=== PATIENT | male | born 2000 | race Caucasian/White ===

== ENCOUNTER 2024-12-19 14:51 | Outpatient (AMB) | payer OTHER, SELFPAY ==
--- NOTE | 2024-12-19 14:52 | A.OFFVIS_ITS ---
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 He initially injured his knee in May 2023 while playing football at [employer]. He was hip in the lateral aspect of his right knee and sustained a dislocation of his patella that auto located. He subsequently rehabbed his knee and returned in February of 2024 to football at [employer] where he re-injured his knee and a similar episode. He did not return that season and an MRI was obtained in March of 2024. This suggested damage to the MPFL, MCL and a injury to the cartilage of the patella. In August of this year he tweaked his knee again. He describes a sensation of instability but no dislocation. He did have subsequent swelling but has returned to activity much quicker than prior. He has had a total of 2 PRP and 2 cortisone injections in the past year. Currently he describes feeling ?okay?. He states he would like to be 100% but feels like he is playing at 80%. He is concerned that he will be unable to get back to 100% or that he will re- injure himself. He does wear a hinged knee brace with a lateral bolster while playing. Physical Exam Extrem Other: Pleasant well developed young man in no acute distress. He has full range of motion of his right knee with no effusion. He has no patellar apprehension and it is difficult to reproduce pain. He has no patellar tilt at his abnormal and his knee is stable to varus and valgus stress. He has a mild discomfort to deep palpation along the femoral origin of the MCL. His quad girth is symmetric compared to the contralateral side with the exception of the VMO. Results Reviewed Results Reviewed: I personally reviewed the MR images. There is a question of the MPFL laxity but the MCL is intact and there is a cartilage lesion to the central patellar facet with subchondral increased uptake on T2 imaging consistent with an osteochondral lesion. 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 There has been subsequent injuries and an MRI from 7-8 months ago showed a patellar contusion. He does not demonstrate symptoms of tiara instability but he is concerned that, given his field position, when he gets hit from the lateral side that he will dislocate again. This is a reasonable concern and he is doing everything he can to prevent this. He is wearing the appropriate braces and engaging in strengthening exercises. I explained the importance of hip strengthening and the prevention of femoral internal rotation as an additional way of understanding patellar dislocation prevention. I do not think there is surgical intervention that would allow him to reliably return to play this year. He had a PRP injection 4-6 weeks ago. We had a long discussion regarding both surgical and nonsurgical treatment options. I think most of his pain comes from the patellar contusion and this does seem to be improving, albeit slowly. My goal for him would be to minimize his symptoms to allow for improved strengthening. Obviously prevention of redislocation is paramount as every time this happens he is going to re-injure the patella. I recommend minimizing deep and heavy squatting and a course of NSAIDs. This may help minimize his symptoms and allow him to achieve a higher level of performance. We will try this and see if it helps and I will touch base with him again in 3-4 weeks. He is amenable to this plan. The process trainer was present during our discussion. (2) Patellar contusion: Code(s): S80.00XA - Contusion of unspecified knee, initial encounter Category: Medical Plan: Coding Level of Care Code New Pt Level 4 (23556) Diagnoses Closed patellar dislocation S83.006A Patellar contusion S80.00XA
--- OUTSIDE RECORDS SUMMARY | 2024-12-19 16:09 | XMS_ITS | Clinical Summary ---
Author Organization [facility] Address [address] GITA Garcia Care Team Providers Care Die Inspector Name Role Phone Mann Nugent MD Primary Care Provider [phone] Allergies Active Allergy Reactions Criticality Noted Date Comments Amoxicillin-Pot Clavulanate 03/13/20 15 Medications albuterol HFA (VENTOLIN HFA) 90 mcg/actuation inhaler Inhale 2 puffs into the lungs every 6 (six) hours as needed for Wheezing. Active loratadine-pseud oephedrine (CLARITIN-D 12-HOUR) 5-120 mg per tablet Take 1 tablet by mouth 2 (two) times daily. Active Active Problems No known active problems Social History Tobacco Use Types Packs/Day Years Used Date Smoking Tobacco: Never Alcohol Use Standard Drinks/Week Comments No 0 (1 standard drink = 0.6 oz pur e alcohol) Caregiver Health Answer Date Recorded Feeling Down Not on file 12/10/2024 Low Interest In Doing Things Not on file 04/2025 Substance use problems in home Not on file 0 12/10/2024 [facility] Caregiver Health Substance Override 1 12/10/2024 Child Education Answer Date Recorded In Preschool Education Not on file Concerns about learning/development Not on file 12/10/2024 School Help Not on file 12/10/2024 Nightly Reading to Child Not on file 025 Child Education Domain: Yes Responses After NA 0 12/10/2024 Child Education Domain: Unknown Responses After NA 1 12/10/2024 Sex and Gender Information Value Date Recorded Sex Assigned at Not on file Legal Sex Male 5:25 PM EDT Gender Identity Not on file Sexual Orientation Not on file Last Filed Vital Signs Vital Sign Reading Time Taken Comments Blood Pressure 166/106 06/20/2024 8:10 AM EST Pulse 82 06/20/2024 8:10 AM EST Temperature 36.5 C (97.7 F) 06/20/2024 6:05 AM EST Respiratory Rate 17 06/20/2024 6:05 AM EST Oxygen Saturation 96% 06/20/2024 8:10 AM EST Inhaled Oxygen Concentration - - Weight 144.2 kg (317 lb 14.5 oz) 06/20/2024 6:05 AM EST Height 200.7 cm (6' 7 ) 06/20/2024 6:05 AM EST Body Mass Index 35.81 06/20/2024 6:05 AM EST Plan of Treatment Health Maintenance Due Date Last Done Comments Hepatitis C Screening 1999 HPV Vaccine (1 - Male 3-dose series) 12/16/2014 Depression Screening 12/16/2017 DTap/Tdap/Td Vaccines (1 - Tdap) 2019 Covid-19 Vaccine ( - season) 2024 Influenza Vaccine 03/03/2025 04/21/2009, 04/28/2008 Hepatitis B Vaccines Completed 07/13/2000, 01/24/2000, 1999 Pneumococcal Vaccine Risk Series 0-50 years Aged Out 01/04/2001, 07/13/2000, 05/09/2000, Additional history exists No longer eligible based on patient's age to complete this topic HIB Vaccines Completed 08/06/2001, 07/03, 05/09/2000, Additional history exists Meningococcal ACWY Vaccine Aged Out 01/21/2011 N o longer eligible based on patient's age to complete this topic Meningococcal B (MenB) Aged Out No lo nger eligible based on patient's age to complete this topic Rotavirus Vaccines Aged Out No longer eligible based on patient's age to complete this topic Insurance GITA SHARMA [id number] [facility] [address] Care Teams Die Inspector Relationship Specialty Start Date End Date Mann Nugetn MD [facility] [address] [id number] PCP - General Pediatrics 04/15/14
== END 2024-12-19 14:54 | disposition home or self-care (01) ==
LOC: HO.HOS 14:51
PROVIDERS: PCP Family Medicine; Visit Provider Orthopaedic Surgery
DX: S83.001A Unspecified subluxation of right patella, initial encounter (principal); S80.01XA Contusion of right knee, initial encounter
CPT/HCPCS: 99204

== ENCOUNTER 2025-02-01 12:03 | Outpatient (REF) | payer OTHER, SELFPAY ==
--- NOTE | ~2025-02-01 | MR_ITS ---
CLINICAL HISTORY: S83.006A - Unspecified dislocation of unspecified patella, initial encou... MR right knee without gadolinium Comparison: None Findings: Abnormal vertical signal within the peripheral aspect of the medial meniscus near the junction of the posterior body and posterior horn. The lateral meniscus is intact. Cruciate ligaments are intact. The midsubstance of the medial collateral ligament appears completely torn and positioned posteriorly. The fibular collateral ligament is intact. Nonuniform up to full-thickness articular cartilage loss centered on the patellar median ridge with small foci of subjacent subchondral edema. Focal articular cartilage thinning at the far peripheral lateral trochlear facet with mild subjacent subchondral edema and cystic change. Mild surrounding marrow edema signal within the subcortical lateral femoral condyle anterolaterally. Tiny medial compartment marginal osteophytes. No focal articular cartilage defects within the medial or lateral compartments. Large knee joint effusion which extends outside of the joint space mostly medially. Small amount of intra-articular debris. No significant Coley's cyst. The medial patellar retinacular insertion on the patella is slightly attenuated suggestive of a partial tear. The lateral aspect of the medial patellar retinaculum is ill-defined. The lateral patellar retinaculum is grossly intact. Quadriceps, patellar, popliteus, and flexor tendons are intact. IMPRESSION: 1. Complete tear of the medial collateral ligament midsubstance. 2. Ill-defined partial tearing of the medial patellar retinaculum. 3. Medial meniscal vertical longitudinal tear at the peripheral aspect of the junction between the posterior body and posterior horn. 4. Irregular full-thickness articular cartilage defect overlying the patellar median ridge, which may be acute given the history of patellar dislocation. 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 5. Large knee joint effusion which extends outside of the joint space mostly medially. Small amount of intra-articular debris. This document has been electronically signed by: Santino Martinez DO on 02/01/2025 14:43:26
== END 2025-02-01 12:04 | disposition home or self-care (01) ==
LOC: HO.MRI 12:03
PROVIDERS: Visit Provider Family Medicine
DX: M25.561 Pain in right knee (principal); S83.004D Unspecified dislocation of right patella, subsequent encounter
CPT/HCPCS: 73721

== ENCOUNTER → 2025-02-01 12:11 | Outpatient (BNV) | payer OTHER, SELFPAY | PROVIDERS: Visit Provider Radiology Diagnostic Radiology | DX: S83.411A Sprain of medial collateral ligament of right knee, initial encounter (principal); M25.461 Effusion, right knee | CPT/HCPCS: 73721 ==

== ENCOUNTER 2025-02-28 14:04 | Outpatient (AMB) | payer OTHER, SELFPAY ==
--- NOTE | 2025-02-28 14:05 | MHC.OFFVIS ---
Intake Visit Reasons: Follow Up Intake Note: Patient follow up. 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 We had been treating him were conservatively with aspiration and bracing and physical therapy and he has been improving. He has been taking diclofenac on her and 50 mg per day which has been helping. He feels approximately 80% back to normal and has been practicing this week with the team without any problems or complications. [facility] Surgical History (Updated 04/16/25 @ 15:06 by Sangeeta Castle CMA) Hx of hand surgery Social History (Updated 04/16/25 @ 15:07 by Sangeeta Castle CMA) Current occupational status: student Current occupation: [employer] Physical Exam Extrem Other: On exam Murray has a mild effusion of the right knee with no tenderness to palpation. 1+ laxity of the MCL at 30 degrees of flexion and no patellar apprehension. 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 He has reached a approximately 80% function and has been practicing without incident all week. He has been cleared to play this weekend. He understands that he is not 100% in it there are risks of further injury including season ending injury. He has been using a unloading brace to protect his MCL and inserts in his shoes to avoid excessive valgus and pronation. We have discussed the possibility of a intramuscular injection of NSAID prior to playing as his swelling persists and does inhibit him. I have asked that he hold his dose of diclofenac and we will be able to inject him prior to playing as he feels this will be most helpful to him to prevent re-injury. I explained to him clearly that this will not be a weekly thing and it will likely be a 1 time injection. Our goals are to enable him to understand the limitations of his injury so that we can continue our recovery process moving forward while at the same time enabling him to play in this game safely. Medications: New diclofenac sodium 50 mg PO BID 42 tabs 2RF Coding Level of Care Code Est Pt Level 4 (36666) Diagnoses Closed patellar dislocation S83.006A
--- OUTSIDE RECORDS SUMMARY | 2025-02-28 14:06 | XMS_ITS | Encounter Summary ---
Author Organization [facility] Address [address] [place], [place] [id number] Phone Care Team Providers Care Children'S Nursery Assistant Name Role Phone Alfonzo Aly DO Primary Care Provider [phone] Encounter Details Date Type Department Care Team (Late st Contact Info) Description 03/05/2024 Procedure Pass [address] [place] [address] Social History Tobacco Use Types Packs/Day Years Used Date Smoking Tobacco: Never Assessed Education Answer Date Recorded Are you interested in more education? Not on beatriz e 03/06/2024 Are you concerned about learning? Not on file 03/06/2024 No 03/06/2024 No 03/06/2024 Digital Access Answer Date Recorded No 03/06/2024 No 03/06/2024 Reliable internet access at home? Not on file 03/06/2024 Device with a working camera? Not on file Sex and Gender Information Value Date Recorded Sex Assigned at Not on file Legal Sex Male 11:21 AM EDT Gender Identity Not on file Sexual Orientation Not on file documented as of this encounter Plan of Treatment Not on file documented as of this encounter Visit Diagnoses Not on filedocumented in this encounter Care Teams Children'S Nursery Assistant Relationship Specialty Start Date End Date Alfonzo Aly DO [address] [place], [place] [address] [address] PCP - General Family Medicine 03/06/24 documented as of this encounter Additional Source Comments The information contained in this document represents components of the legal health record. It is not the complete legal health record.[facility]
--- OUTSIDE RECORDS SUMMARY | 2025-02-28 14:06 | XMS_ITS | Continuity of Care Document ---
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 Allergic rhinitis Trevor Roy M.S., INTERNATIONAL EXCHANGE COORDINATOR-C Onset: 12/19/2013 Allergic rhinitis Trevor Roy M.S., INTERNATIONAL EXCHANGE COORDINATOR-C Onset: 12/19/2013 Allergic rhinitis caused by animals Trevor Roy M.S., INTERNATIONAL EXCHANGE COORDINATOR-C Onset: 12/19/2013 Allergic rhinitis caused by pollen Lynnette Bey, INTERNATIONAL EXCHANGE COORDINATOR-C Onset: 12/19/2013 Allergic asthma without status asthmaticus Trevor Roy M.S., INTERNATIONAL EXCHANGE COORDINATOR-C Onset: 12/19/2013 Exercise-induced asthma Trevor Roy M.S., INTERNATIONAL EXCHANGE COORDINATOR-C O nset: 11/29/2013 Difficulty breathing Trevor Roy M.S., INTERNATIONAL EXCHANGE COORDINATOR-C Onse t: 11/29/2013 Posterior rhinorrhea Trevor Roy M.S., INTERNATIONAL EXCHANGE COORDINATOR-C Onse t: 11/29/2013 Chronic rhinitis Trevor Roy M.S., INTERNATIONAL EXCHANGE COORDINATOR-C Onset: 0 11/29/2013 Allergies and adverse reactions Active Allergies Criticality Reaction Severity Comments Date Augmentin Unable to assess criticality Urticaria 11/29/2013 Montelukast Unable to assess criticality Mood change Moderate 02/14/2014 Inactive Allergies No Known Drug Allergies 0 11/29/2013 Medications Active Medications SIG Qnty Indications Ordering Provider Date Stcu21isv/Act Aerosol 2 puffs twice daily; rinse mouth after use 1units 493.00 Vitor Parekh M.D. 12/19/2013 [id number] Tablets 1 tab by mouth every day as needed for seasonal allergies 30tabs 493.00 Trevor Roy M.S., INTERNATIONAL EXCHANGE COORDINATOR-C 12/19/2013 Sinus Rinse Bottle KitPacket rinse sinus twice daily; may buy gtha-tvt-nqqwuah sinus rinse 1units 472.0 Trevor Roy M.S., INTERNATIONAL EXCHANGE COORDINATOR-C 11/29/2013 Jeaaotc87lcw/Act Suspension 1 spray each nostril twice daily 1units 472.0 Trevor Roy M.S., INTERNATIONAL EXCHANGE COORDINATOR-C 11/29/2013 784.91 493.00 Ventolin UFP411(90Base) mcg/Act Aerosol 2 puffs every 4 hours as needed; 30min prior to exercise 1units 472.0 Trevor Roy M.S., INTERNATIONAL EXCHANGE COORDINATOR-C 11/29/2013 Vital Signs Date Vital Result Comment 04/25/2014 4:24pm Height 72 inches 6'0 Weight 146.00 lb Weight 66.226 kg BP Systolic 110 mmHg left arm BP Diastolic 70 mmHg left arm Heart Rate 85 /min Body Temperature 98.4 F tympanic Respiratory Rate 16 /min O2 % BldC Oximetry 96 % Room air Neck Circumference in inches 13 BMI (Body Mass Index) 19.8 kg/m2 02/14/2014 8:32am Height 71 inches 5'11 Weight 139.00 lb Weight 63.050 kg BP Systolic 100 mmHg left arm BP Diastolic 80 mmHg left arm Heart Rate 75 /min Body Temperature 96.3 F tympanic Respiratory Rate 20 /min O2 % BldC Oximetry 98 % Room air Neck Circumference in inches 13 BMI (Body Mass Index) 19.4 kg/m2
--- OUTSIDE RECORDS SUMMARY | 2025-02-28 14:06 | XMS_ITS | Clinical Summary ---
Author Organization [facility] Address [address] [place] [address] Phone Care Team Providers Care Hog Killer Name Role Phone Mann Nugent MD Primary Care Provider [phone] Allergies No known active allergies Medications No known medications Family History Medical History Relation Name Comments OTHER Father Treated for Lym e in 1984; Was treated for PAUL for 2 years prior to that, but then found a target lesion. He has cartilage damage in some joints. No further problems after 10th grade. Stage IV Melanoma diagnosed 1 year ago Rheumatoid Arthritis Father IBD No Family History Psoriasis No Family History SLE No Family History Thyroid Disease No Family History Relation Name Status Comments Father Social History Tobacco Use Types Packs/Day Years Used Date Smoking Tobacco: Never Assessed Sex and Gender Information Value Date Recorded Sex Assigned at Not on file Legal Sex Male 11:52 AM EST Gender Identity Not on file Sexual Orientation Not on file Last Filed Vital Signs Vital Sign Reading Time Taken Comments Blood Pressure 110/66 09/29/2009 1:19 PM EDT Pulse 79 09/29/2009 1:19 PM EDT Temperature 36.8 C (98.2 F) 09/29/2009 1:19 PM EDT Respiratory Rate - - Oxygen Saturation - - Inhaled Oxygen Concentration - - Weight 39.6 kg (87 lb 4.8 oz) 09/29/2009 1:19 PM EDT Height 155.1 cm (5' 1.06 ) 09/29/2009 1:19 PM ED T Body Mass Index 16.46 09/29/2009 1:19 PM EDT Plan of Treatment Not on file Insurance GITA GARCIA [employer] [facility] GITA [id number] Care Teams Hog Killer Relationship Specialty Start Date End Date Mann Nugent MD [address] [facility] [address] [place] [id number] PCP - General 06/04/09
--- OUTSIDE RECORDS SUMMARY | 2025-02-28 14:06 | XMS_ITS | Encounter Summary ---
Author Organization [facility] Address [address] [place] [address] Phone Care Team Providers Care Edging Machine Operator Name Role Phone Alfonzo Aly DO Primary Care Provider [phone] Reason for Referral * MRI/CAT Scan - Closed Specialty Diagnoses / Procedures Referred By Juan german Referred To Contact Radiology Diagnoses Right knee pain, unspecified chronicity Procedures MRI Knee (Right) Alfonzo Aly DO [address] [place] [address] Phone: tel: fax: [email or web address] Referral ID Status Reason Start Date Expiration Date Visits Re quested Visits Authorized [id number] Closed 03/05/2024 03/05/2025 1 1 Encounter Details Date Type Department Care Team (Late st Contact Info) Description 03/05/2024 Transcribe Orders Virtual Department [address] [place] [address] Alfonzo Aly DO [address] [place] [address] [email or web address] Right knee pain, unspecified chronicity (Primary Dx) Social History Tobacco Use Types Packs/Day Years [...] on file documented as of this encounter Results * MRI KNEE WITHOUT CONTRAST (RIGHT) (03/18/2024 7:46 AM EDT) Anatomical Region Laterality Modality Knee Right Magnetic Resonan ce 03/18/2024 8:17 AM EDT Addenda Addendum by Cristo Levy MD on 03/27/2024 9:31 AM EDT ADDENDUM: Prior right knee MRI 05/07/2023 now available for comparison. No change in the overall impression. Impressions 03/18/2024 8:29 AM EDT 1. Likely sequela of transient lateral patellar dislocation with complete disruption of the medial patellofemoral retinaculum/medial patellofemoral ligament at the femoral attachment and associated contusions/microtrabecular fractures of the lateral femoral condyle and medial patella. 2. Complete MCL tear. 3. Mild attenuation of the medial meniscus posterior root attachment with mild meniscal extrusion, possibly degeneration versus partial tear. 4. Large osteochondral defect within the patella. Narrative 03/18/2024 8:29 AM EDT MRI KNEE WITHOUT CONTRAST (RIGHT) Referring clinician's provided indication for this examination in Epic: Outside Radiology Order; right knee pain TECHNIQUE: Multi-sequence, multi-planar MRI of the knee without intravenous contrast. COMPARISON: None FINDINGS: Medial Compartment: Mild attenuation of the medial meniscus posterior root attachment with mild meniscal extrusion. No cartilage defect or subchondral edema. Lateral Compartment: No meniscal tear. No cartilage defect or subchondral edema. Patellofemoral Compartment: 1.8 x 1.4 cm focus of subchondral signal abnormality/defect with subchondral cystic change and edema. Tendons: Quadriceps, patellar, and popliteus tendons are intact. Ligaments: Cruciate ligaments are intact. Complete disruption of the mid medial collateral ligament fibers. Complete disruption of the medial patellofemoral retinaculum/medial patellofemoral ligament at the femoral attachment. The patellar attachment is mildly thickened without tear. The medial patellofemoral retinaculum is thickened inferiorly with intermediate intrasubstance signal. Marked periligamentous edema with 5.1 x 1.3 x 4.3 cm fluid collection inferiorly. The lateral collateral ligament complex is intact. Bones: Marrow edema with a small focus of cortical disruption and areas of linear T1 hypointensity within the anterior aspect of the lateral femoral condyle. There is also a small focus of edema within the medial aspect of the patella. No suspicious bone lesion. No osteonecrosis. Joint: Small joint effusion. No Coley's cyst. Procedure Note Cristo Levy MD - 03/18/2024 MRI KNEE WITHOUT CONTRAST (RIGHT) Referring clinician's provided indication for this examination in Epic:Outside Radiology Order; right knee pain TECHNIQUE: Multi-sequence, multi-planar MRI of the knee withoutintravenous contrast. COMPARISON: None FINDINGS: Medial Compartment: Mild attenuation of the medial meniscus posterior rootattachment with mild meniscal extrusion. No cartilage defect orsubchondral edema. Lateral Compartment: No meniscal tear. No cartilage defect or subchondraledema. Patellofemoral Compartment: 1.8 x 1.4 cm focus of subchondral signalabnormality/defect with subchondral cystic change and edema. Tendons: Quadriceps, patellar, and popliteus tendons are intact. Ligaments: Cruciate ligaments are intact. Complete disruption of the midmedial collateral ligament fibers. Complete disruption of the medialpatellofemoral retinaculum/medial patellofemoral ligament at the femoralattachment. The patellar attachment is mildly thickened without tear. Themedial patellofemoral retinaculum is thickened inferiorly withintermediate intrasubstance signal. Marked periligamentous edema with 5.1x 1.3 x 4.3 cm fluid collection inferiorly. The lateral collateralligament complex is intact. Bones: Marrow edema with a small focus of cortical disruption and areas oflinear T1 hypointensity within the anterior aspect of the lateral femoralcondyle. There is also a small focus of edema within the medial aspect ofthe patella. No suspicious bone lesion. No osteonecrosis. Joint: Small joint effusion. No Coley's cyst. IMPRESSION: 1. Likely sequela of transient lateral patellar dislocation with completedisruption of the medial patellofemoral retinaculum/medial patellofemoralligament at the femoral attachment and associatedcontusions/microtrabecular fractures of the lateral femoral condyle andmedial patella. 2. Complete MCL tear. 3. Mild attenuation of the medial meniscus posterior root attachment withmild meniscal extrusion, possibly degeneration versus partial tear. 4. Large osteochondral defect within the patella. Alfonzo Aly DO IMG MR EXTREMITY Edited Resul t - Final documented in this encounter Visit Diagnoses Diagnosis Right knee pain, unspecified chronicity- Primary Right knee pain, unspecified chronicity documented in this encounter Care Teams Edging Machine Operator Relationship Specialty Start Date End Date Alfonzo Aly DO [address] [place] [id number] [email or web address] PCP - General Family Medicine 03/06/24 documented as of this encounter Additional Source Comments The information contained in this document represents components of the legal health record. It is not the complete legal health record.[facility]
--- OUTSIDE RECORDS SUMMARY | 2025-02-28 14:06 | XMS_ITS | Clinical Summary ---
Author Organization [facility] Address [address] [place] [address] Phone Care Team Providers Care Pot Filler Name Role Phone Alfonzo Aly Cristina RODRIGUEZ Primary Care Provider [phone] Social History Tobacco Use Types Packs/Day Years [...] Sign Reading Time Taken Comments Blood Pressure - - Pulse - - Temperature - - Respiratory Rate - - Oxygen Saturation - - Inhaled Oxygen Concentration - - Weight 145.2 kg (320 lb) 03/12/2024 3:18 PM EDT Height 200.7 cm (6' 7 ) 03/12/2024 3:18 PM EDT Body Mass Index 36.05 03/12/2024 3:18 PM EDT Plan of Treatment Health Maintenance Due Date Last Done Comments Adult Td,Tdap Booster 1999 DEPRESSION SCREENING 2011 SMOKING Hx and SMOKELESS TOB ACCO SCREENING 12/16/2012 HPV VACCINES (1 - Male 3-dos e series) 12/16/2014 HEPATITIS C SCREENING 12/16/2017 HIV ONE-TIME SCREENING (18-6 5 YEARS) 12/16/2017 COVID-19 VACCINE ( - 2023-2 5 season) 2024 HEPATITIS A VACCINES Aged Out No long er eligible based on patient's age to complete this topic HIB VACCINES Aged Out No longer eligi ble based on patient's age to complete this topic MENINGOCOCCAL VACCINES (ACWY) Aged Out No longer eligible based on patient's age to complete this topic MENINGOCOCCAL VACCINES (B) Aged Out N o longer eligible based on patient's age to complete this topic PNEUMOCOCCAL VACCINES (0-49 years) Aged Out No longer eligible based on patient's age to complete this topic Medical Devices Not on file Insurance [employer] Care Teams Pot Filler Relationship Specialty Start Date End Date Alfonzo Aly DO [address] [place] [phone] PCP - General Family Medicine 03/06/24 Additional Source Comments The information contained in this document represents components of the legal health record. It is not the complete legal health record.[facility]
--- OUTSIDE RECORDS SUMMARY | 2025-02-28 14:06 | XMS_ITS | Continuity of Care Document ---
Author Organization [facility] luzmaria Soriano Address [address] [place] [address] Phone [phone] Care Team Providers Care Lead Programmer Analyst Name Role Phone Alfonzo Aly DO Care Team Information Desizing Machine Offbearer Unavailable JASE EID DPT Care Team Information Re ceiver Unavailable Mann Nugent MD Primary Care Physician Unavailab le Social History Type Date Description Comments Sex Male Sex Unknown Medications Active Medications SIG Qnty Indications Ordering Provider Date [id number] Tablets Unkn own Vital Signs Date Vital Result Comment 06/17/2024 11:07am BP Systolic 171 mmHg BP Diastolic 111 mmHg Heart Rate 117 /min Weight 315.00 lb Weight 142.884 kg Height 79 inches 6'7 Height in cm's 200.7 cm BMI (Body Mass Index) 35.5 kg/m2 [place] Body Weight 220 lb 01/30/2018 9:59am Height 79 inches 6'7 Height in cm's 200.7 cm Height Percentile 97 % [place] Body Weight 220 lb Procedures Date Code Description Status 07/25/2024 71209 Therapeutic Activities Direc t, Each 15 Minutes Completed 07/25/2024 45592 Re-Eval Of PT Es tablished Plan Of Care 20Mins Face To Face PT/Fam Completed 07/25/2024 93703 Neuromuscular Reeducation, E ach 15 Minutes Completed 07/25/2024 34832 Therapeutic Procedure, Each 15 Minutes Completed 07/25/2024 [facility] [employer] mpleted 07/23/2024 74135 Therapeutic Activities Direc t, Each 15 Minutes Completed 07/23/2024 93665 Neuromuscular Reeducation, E ach 15 Minutes Completed 07/23/2024 08029 Therapeutic Procedure, Each 15 Minutes Completed 07/22/2024 15756 Therapeutic Activities Direc t, Each 15 Minutes Completed 07/22/2024 87018 Therapeutic Procedure, Each 15 Minutes Completed 07/22/2024 92767 Neuromuscular Reeducation, E ach 15 Minutes Completed 07/19/2024 61274 Therapeutic Activities Direc t, Each 15 Minutes Completed 07/19/2024 63678 Neuromuscular Reeducation, E ach 15 Minutes Completed 07/19/2024 24940 Therapeutic Procedure, Each 15 Minutes Completed 07/19/2024 88701 Range Of Motion Measurements Each Extremity Or Trunk Section Completed 07/16/2024 71147 Neuromuscular Reeducation, E ach 15 Minutes Completed 07/16/2024 68595 Therapeutic Procedure, Each 15 Minutes Completed 07/16/2024 06753 Therapeutic Activities Direc t, Each 15 Minutes Completed 07/15/2024 72011 Therapeutic Activities Direc t, Each 15 Minutes Completed 07/15/2024 00117 Neuromuscular Reeducation, E ach 15 Minutes Completed 07/15/2024 53094 Therapeutic Procedure, Each 15 Minutes Completed 07/12/2024 51507 Therapeutic Activities Direc t, Each 15 Minutes Completed 07/12/2024 43295 Neuromuscular Reeducation, E ach 15 Minutes Completed 07/12/2024 04713 Therapeutic Procedure, Each 15 Minutes Completed 07/09/2024 55495 Therapeutic Activities Direc t, Each 15 Minutes Completed 07/09/2024 95633 Neuromuscular Reeducation, E ach 15 Minutes Completed 07/09/2024 96895 Therapeutic Procedure, Each 15 Minutes Completed 07/08/2024 87198 Therapeutic Activities Direc t, Each 15 Minutes Completed 07/08/2024 12281 Neuromuscular Reeducation, E ach 15 Minutes Completed 07/08/2024 86956 Therapeutic Procedure, Each 15 Minutes Completed 07/05/2024 73279 Therapeutic Activities Direc t, Each 15 Minutes Completed 07/05/2024 69229 Therapeutic Procedure, Each 15 Minutes Completed 07/05/2024 93512 Neuromuscular Reeducation, E ach 15 Minutes Completed 07/01/2024 72654 Therapeutic Activities Direc t, Each 15 Minutes Completed 07/01/2024 94740 Neuromuscular Reeducation, E ach 15 Minutes Completed 07/01/2024 80370 Therapeutic Procedure, Each 15 Minutes Completed 06/28/2024 33063 Therapeutic Activities Direc t, Each 15 Minutes Completed 06/28/2024 59848 Neuromuscular Reeducation, E ach 15 Minutes Completed 06/28/2024 27444 Therapeutic Procedure, Each 15 Minutes Completed 06/25/2024 45922 Therapeutic Activities Direc t, Each 15 Minutes Completed 06/25/2024 76700 Neuromuscular Reeducation, E ach 15 Minutes Completed 06/25/2024 97154 Therapeutic Procedure, Each 15 Minutes Completed 06/24/2024 92580 Neuromuscular Reeducation, E ach 15 Minutes Completed 06/24/2024 14412 Therapeutic Procedure, Each 15 Minutes Completed 06/21/2024 93609 Neuromuscular Reeducation, E ach 15 Minutes Completed 06/21/2024 59155 Therapeutic Procedure, Each 15 Minutes Completed 06/19/2024 G8417 Calculated BMI A osei Upper Parameter And Follow Up Plan Documentd Completed 06/19/2024 83247 Therapeutic Procedure, Each 15 Minutes Completed 06/19/2024 51504 Neuromuscular Reeducation, E ach 15 Minutes Completed 06/19/2024 96620 Therapeutic Activities Direc t, Each 15 Minutes Completed 06/17/2024 G8417 Calculated BMI A osei Upper Parameter And Follow Up Plan Documentd Completed 06/17/2024 43925 Therapeutic Activities Direc t, Each 15 Minutes Completed 06/17/2024 75548 Physical Therapy Eval Low Co mplexity Completed 06/17/2024 49193 Neuromuscular Reeducation, E ach 15 Minutes Completed 06/17/2024 18299 Therapeutic Procedure, Each 15 Minutes Completed 02/13/2018 09710 Post-Op Follow-Up Visit Comp leted 01/30/2018 18421 Post-Op Follow-Up Visit Comp leted 01/02/2018 41038 Post-Op Follow-Up Visit Comp leted 12/25/2017 47844 FX Metacarpal Open TX W/Wo F ixation Completed 12/25/2017 62655 Tenolysis Flexor/Extensor Te ndon Forearm/Wrist Completed 12/22/2017 L3908 Who, Wrist Extension Control Cock-Up Nonmolded Completed Assessments Date Code Description Provider 07/25/2024 S83.411D Sprain of medial collateral ligament of right knee, subsequent encounter Jama Dill DPT 07/25/2024 M25.561 Pain in right knee Jama Dill DPT 07/25/2024 M62.81 Muscle weakness (generalized ) Jama Dill DPT 07/25/2024 R26.2 Difficulty in wa lking, not elsewhere classified Jama Dill, DPT 07/25/2024 S80.02xD Contusion of lef t knee, subsequent encounter Jama Dill, DPT 07/25/2024 Z68.35 Body mass index [BMI] 35.0-3 5.9, adult Jama Dill, DPT 07/23/2024 S83.411D Sprain of medial collateral ligament of right knee, subsequent encounter Jase Eid DPT 07/23/2024 S83.411D Sprain of medial collateral ligament of right knee, subsequent encounter Jase Eid DPT 07/23/2024 M25.561 Pain in right knee Gordos,Ch ristopher DPT 07/23/2024 M25.561 Pain in right knee Gordkasie,Ch ristopher DPT 07/23/2024 M62.81 Muscle weakness (generalized ) Jase Eid DPT 07/23/2024 M62.81 Muscle weakness (generalized ) Jase Eid DPT 07/23/2024 R26.2 Difficulty in wa lking, not elsewhere classified JennyJase ferro DPT 07/23/2024 R26.2 Difficulty in wa lking, not elsewhere classified Jase Eid DPT 07/23/2024 S80.02xD Contusion of lef t knee, subsequent encounter Jase Eid DPT 07/23/2024 S80.02xD Contusion of lef t knee, subsequent encounter Jase Eid DPT 07/23/2024 Z68.35 Body mass index [BMI] 35.0-3 5.9, adult StantonJase DPT 07/22/2024 S83.411D Sprain of medial collateral ligament of right knee, subsequent encounter Jama Dill, DPT 07/22/2024 M25.561 Pain in right knee Jama Dill, DPT 07/22/2024 M62.81 Muscle weakness (generalized ) Jama Dill, DPT 07/22/2024 R26.2 Difficulty in wa lking, not elsewhere classified Jama Dill, DPT 07/22/2024 S80.02xD Contusion of lef t knee, subsequent encounter Jama Dill, DPT 07/22/2024 Z68.35 Body mass index [BMI] 35.0-3 5.9, adult DillJama juaerz, DPT 07/19/2024 S83.411D Sprain of medial collateral ligament of right knee, subsequent encounter Jama Dill, DPT 07/19/2024 M25.561 Pain in right knee Jama Dill, DPT 07/19/2024 M62.81 Muscle weakness (generalized ) Stan Dillic, DPT 07/19/2024 R26.2 Difficulty in wa lking, not elsewhere classified Jama Dill, DPT 07/19/2024 S80.02xD Contusion of lef t knee, subsequent encounter Jama Dill, DPT 07/19/2024 Z68.35 Body mass index [BMI] 35.0-3 5.9, adult Jama Dill, DPT 07/16/2024 S83.411D Sprain of medial collateral ligament of right knee, subsequent encounter Jase Eid DPT 07/16/2024 M25.561 Pain in right knee Misty Eid DPT 07/16/2024 M62.81 Muscle weakness (generalized ) Jase Eid DPT 07/16/2024 R26.2 Difficulty in wa lking, not elsewhere classified Jase Eid DPT 07/16/2024 S80.02xD Contusion of lef t knee, subsequent encounter Jase Eid DPT 07/16/2024 Z68.35 Body mass index [BMI] 35.0-3 5.9, adult StantonJase DPT 07/15/2024 S83.411D Sprain of medial collateral ligament of right knee, subsequent encounter Jama Dill, DPT 07/15/2024 M25.561 Pain in right knee Jama Dill, DPT 07/15/2024 M62.81 Muscle weakness (generalized ) Jama Dill, DPT 07/15/2024 R26.2 Difficulty in wa lking, not elsewhere classified Jama Dill, DPT 07/15/2024 S80.02xD Contusion of lef t knee, subsequent encounter Stan Dillic, DPT 07/15/2024 Z68.35 Body mass index [BMI] 35.0-3 5.9, adult DillStan juarezic, DPT 07/12/2024 S83.411D Sprain of medial collateral ligament of right knee, subsequent encounter Jase Eid DPT 07/12/2024 M25.561 Pain in right knee Stanton,Ch ristopher DPT 07/12/2024 M62.81 Muscle weakness (generalized ) Jase Eid DPT 07/12/2024 R26.2 Difficulty in wa lking, not elsewhere classified Jase Eid DPT 07/12/2024 S80.02xD Contusion of lef t knee, subsequent encounter Jase Eid DPT 07/12/2024 Z68.35 Body mass index [BMI] 35.0-3 5.9, adult Jase Eid DPT 07/09/2024 S83.411D Sprain of medial collateral ligament of right knee, subsequent encounter Jama Dill, DPT 07/09/2024 M25.561 Pain in right knee Jama Dill, DPT 07/09/2024 M62.81 Muscle weakness (generalized ) Jama Dill, DPT 07/09/2024 R26.2 Difficulty in wa lking, not elsewhere classified Jama Dill, DPT 07/09/2024 S80.02xD Contusion of lef t knee, subsequent encounter Jama Dill, DPT 07/09/2024 Z68.35 Body mass index [BMI] 35.0-3 5.9, adult DillStan juarezic, DPT 07/08/2024 S83.411D Sprain of medial collateral ligament of right knee, subsequent encounter Jase Eid DPT 07/08/2024 M25.561 Pain in right knee Stanton,Ch ristopher DPT 07/08/2024 M62.81 Muscle weakness (generalized ) Jase Eid DPT 07/08/2024 R26.2 Difficulty in wa lking, not elsewhere classified Jase Eid DPT 07/08/2024 S80.02xD Contusion of lef t knee, subsequent encounter Anish Eidopher DPT 07/08/2024 Z68.35 Body mass index [BMI] 35.0-3 5.9, adult Anish Eidopher DPT 07/05/2024 S83.411D Sprain of medial collateral ligament of right knee, subsequent encounter Anish Eidcaridader DPT 07/05/2024 M25.561 Pain in right knee Stanton,Ch ristopher DPT 07/05/2024 M62.81 Muscle weakness (generalized ) Anish Eidopher DPT 07/05/2024 R26.2 Difficulty in wa lking, not elsewhere classified Jase Eid DPT 07/05/2024 S80.02xD Contusion of lef t knee, subsequent encounter Anish Eidopher DPT 07/05/2024 Z68.35 Body mass index [BMI] 35.0-3 5.9, adult Anish Eidcaridader DPT 07/01/2024 S83.411D Sprain of medial collateral ligament of right knee, subsequent encounter Anish Eidopher DPT 07/01/2024 M25.561 Pain in right knee Stanton,Ch ristopher DPT 07/01/2024 M62.81 Muscle weakness (generalized ) StantonChristopher DPT 07/01/2024 R26.2 Difficulty in wa lking, not elsewhere classified Anish Eidopher DPT 07/01/2024 S80.02xD Contusion of lef t knee, subsequent encounter Anish Eidopher DPT 07/01/2024 Z68.35 Body mass index [BMI] 35.0-3 5.9, adult Anish Eidopher DPT 06/28/2024 S83.411D Sprain of medial collateral ligament of right knee, subsequent encounter Dill, Jama, DPT 06/28/2024 M25.561 Pain in right knee Dill, Jama, DPT 06/28/2024 M62.81 Muscle weakness (generalized ) Dill, Jama, DPT 06/28/2024 R26.2 Difficulty in wa lking, not elsewhere classified Dill, Jama, DPT 06/28/2024 S80.02xD Contusion of lef t knee, subsequent encounter Jama Dill, DPT 06/28/2024 Z68.35 Body mass index [BMI] 35.0-3 5.9, adult Jama Dill, DPT 06/25/2024 S83.411D Sprain of medial collateral ligament of right knee, subsequent encounter Jase Eid DPT 06/25/2024 M25.561 Pain in right knee Gordos,Ch ristopher DPT 06/25/2024 M62.81 Muscle weakness (generalized ) Anish Eidopher DPT 06/25/2024 R26.2 Difficulty in wa lking, not elsewhere classified Jase Eid DPT 06/25/2024 S80.02xD Contusion of lef t knee, subsequent encounter Jase Eid DPT 06/25/2024 Z68.35 Body mass index [BMI] 35.0-3 5.9, adult Anish Eidopher DPT 06/24/2024 S83.411D Sprain of medial collateral ligament of right knee, subsequent encounter Anish Eidopher DPT 06/24/2024 M25.561 Pain in right knee Gordos,Ch ristopher DPT 06/24/2024 M62.81 Muscle weakness (generalized ) Anish Eidopher DPT 06/24/2024 R26.2 Difficulty in wa lking, not elsewhere classified Jase Eid DPT 06/24/2024 S80.02xD Contusion of lef t knee, subsequent encounter Anish Eidopher DPT 06/24/2024 Z68.35 Body mass index [BMI] 35.0-3 5.9, adult JennyAnish ferroopher DPT 06/21/2024 S83.411D Sprain of medial collateral ligament of right knee, subsequent encounter Anish Eidophstan DPT 06/21/2024 M25.561 Pain in right knee Gordos,Ch ristopher DPT 06/21/2024 M62.81 Muscle weakness (generalized ) Anish Eidopher DPT 06/21/2024 R26.2 Difficulty in wa lking, not elsewhere classified Jase Eid DPT 06/21/2024 S80.02xD Contusion of lef t knee, subsequent encounter Anish Eidopher DPT 06/21/2024 Z68.35 Body mass index [BMI] 35.0-3 5.9, adult Anish Eidopher DPT 06/19/2024 S83.411D Sprain of medial collateral ligament of right knee, subsequent encounter Anish Eidopher DPT 06/19/2024 M25.561 Pain in right knee Gordos,Ch ristopher DPT 06/19/2024 M62.81 Muscle weakness (generalized ) Anish Eidopher DPT 06/19/2024 R26.2 Difficulty in wa lking, not elsewhere classified Ab Eider DPT 06/19/2024 S80.02xD Contusion of lef t knee, subsequent encounter Anish Eidopher DPT 06/19/2024 Z68.35 Body mass index [BMI] 35.0-3 5.9, adult Anish Eidopher DPT 06/17/2024 S83.411D Sprain of medial collateral ligament of right knee, subsequent encounter Anish Eidopher DPT 06/17/2024 M25.561 Pain in right knee Gordkasie,Ch ristopher DPT 06/17/2024 M62.81 Muscle weakness (generalized ) Anish Eidopher DPT 06/17/2024 R26.2 Difficulty in wa lking, not elsewhere classified Anish Eidopher DPT 06/17/2024 S80.02xD Contusion of lef t knee, subsequent encounter Anish Eidopher DPT 06/17/2024 Z68.35 Body mass index [BMI] 35.0-3 5.9, adult Anish Eidopher DPT 02/13/2018 S62.303D Unspecified frac ture of third metacarpal bone, left hand, subsequent encounter for fracture with routine healing Wily Pereyra M.D. 01/30/2018 S62.303D Unspecified frac ture of third metacarpal bone, left hand, subsequent encounter for fracture with routine healing Wily Pereyra M.D. 01/02/2018 S62.303D Unspecified frac ture of third metacarpal bone, left hand, subsequent encounter for fracture with routine healing Wily Pereyra M.D. 12/25/2017 S62.303A Unspecified frac ture of third metacarpal bone, left hand, initial encounter for closed fracture Wily Pereyra M.D. 12/25/2017 M79.645 Pain in left finger(s) Wily Joe M.D. 12/25/2017 M24.542 Contracture, left hand Wily Joe M.D. 12/22/2017 S62.323A Displaced fractu re of shaft of third metacarpal bone, left hand, initial encounter for closed fracture Wily Pereyra M.D. 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 12/22/2017 M79.642 Pain in left hand Wily Pereyra M.D.
--- OUTSIDE RECORDS SUMMARY | 2025-02-28 14:06 | XMS_ITS | Clinical Summary ---
Author Organization [facility] Address [address] [place] [address] Care Team Providers Care Armored Vehicle Officer Name Role Phone Unavailable Primary Care Provider Unavailabl e Active Problems Problem Noted Date Diagnosed Date Extrinsic asthma, unspecified 12/26/2013 Immunizations Immunization Administration Dates Next Due DTP 01/13/2004, 2,07/13/2000,05/09,03/10/2000 Hep B, Adolescent or Pediatr ic (Age < 20Y) 07/13/2000,01/24/2000,1999 HiB Unspecified 08/06/2001, 1,05/09/2000,03/10 IPV (Polio, Ipol) (Age >= 6W) 01/13/2004 ,08/06/2001,05/09/2000,03/10 Influenza, Unspecified 04/21/2009,04/28/2008 MMR (Age >= 12M) 01/13/2004,01/04/2001 Meningococcal Conjugate MCV4 P (Menactra) (Age 9M <= 55Y) 01/21/2011 Pneumococcal Conjugate 7-gertrude ent (Age < 5Y) 01/04/2001,07/13/2000,05/09/2000,03/10 Tdap (Adacel/ Boostrix) (Age >= 7Y) 01/21/2011 Varicella (Varivax) (Age >= 12M) 12/19/2006,10/2000 Social History Tobacco Use Types Packs/Day Years Used Date Smoking Tobacco: Never Assessed Sex and Gender Information Value Date Recorded Sex Assigned at Not on file Legal Sex Male 2:40 AM EST Gender Identity Not on file Sexual Orientation Not on file Last Filed Vital Signs Vital Sign Reading Time Taken Comments Blood Pressure 118/74 01/10/2014 2:28 PM EDT Pulse - - Temperature - - Respiratory Rate - - Oxygen Saturation - - Inhaled Oxygen Concentration - - Weight 62.6 kg (137 lb 15 oz) 01/10/2014 2:28 PM EDT Height 180 cm (5' 10.87 ) 01/10/2014 2:28 PM EDT Body Mass Index 19.31 01/10/2014 2:28 PM EDT Plan of Treatment Health Maintenance Due Date Last Done Comments HIV Screen 1999 Hepatitis C Screening 1999 Preventative Care Visit (18- 39 y.o.) 1999 Depression Screen* 2011 HPV Vaccine (1 - Male 3-dose series) 12/16/2014 Social Drivers of Health 12/16/2017 Pneumococcal Vaccine (1 of 2 - PCV) 12/16/2018 01/04/2001, 07/13/2000, 05/09/2000, Additional history exists Tetanus 01/21/2021 01/21/2011, 12/31, 08/06/2001, Additional history exists COVID-19 Vaccine ( - 2023-2 5 season) 2024 Influenza Vaccine* (#1) 03/03/2025 04/21/2009, 04/28 RSV Vaccine (1 - 1-dose 75+ series) 12/16/2074 Hepatitis B Vaccine Completed 07/13/2000, 01/24/2000, 1999
== END 2025-02-28 15:35 | disposition home or self-care (01) ==
LOC: HO.HOS 14:04
PROVIDERS: Visit Provider Orthopaedic Surgery
DX: S83.006A Unspecified dislocation of unspecified patella, initial encounter (principal)
CPT/HCPCS: 99214

== ENCOUNTER → 2025-02-28 14:04 | Outpatient (BNVA) | payer SELFPAY | PROVIDERS: Visit Provider Orthopaedic Surgery | DX: M25.461 Effusion, right knee (principal); M23.8X1 Other internal derangements of right knee; S83.004A Unspecified dislocation of right patella, initial encounter; Y93.61 Activity, american tackle football; Y93.89 Activity, other specified; Y92.321 Football field as the place of occurrence of the external cause; Y99.9 Unspecified external cause status | CPT/HCPCS: J1885 ==

== ENCOUNTER 2025-03-05 10:27 | Outpatient (AMB) | payer OTHER, SELFPAY ==
--- NOTE | 2025-03-05 10:29 | MHC.OFFVIS ---
Intake Visit Reasons: Follow Up Allergies amoxicillin (From Augmentin) Allergy (Verified 04/16/25 15:07) Hives clavulanic acid (From Augmentin) Allergy (Verified 04/16/25 15:07) Hives HPI HPI Follow Up: Details: Follow up with benjamin today regarding his right knee. He continues to have an effusion and pain. We are modifying his practice regimen b avoiding deep squats and limiting contact. He feels like he is improving. We have obtained inserrts in his shows and an unloading brace. He is working of hip strengthening exercises. PFSH Surgical History (Updated 04/16/25 @ 15:06 by Sangeeta Castle CMA) Hx of hand surgery Social History (Updated 04/16/25 @ 15:07 by Sangeeta Castle CMA) Current occupational status: student Current occupation: [employer] Physical Exam Extrem Other: Right knee with moderate effusion valgus stability at 0 deg with 1+ laxity at 30 deg full ROM Office Procedures Joint Inj/Aspir; Non-Pain Clin Joint Injection/Drain Details: no injection Coding Procedure code (CPT) selection complete Assessment & Plan Assessment & Plan (1) MCL deficiency, knee: Code(s): M23.8X9 - Other internal derangements of unspecified knee Category: Medical Plan: Benjamin's knee is improving but he had MCL laxity and we are employing several options to prevent injury while playing. Orthotics to avoid excessive pronation, lateral machine or machinery mechanic to prevent dynamic valgus and, MCL taping. In addition we have aspirated the knee the reduce the effusion. We plan on giving Toradol prior to game time to allow for less pain while playing. We have been treating him with diclofenac which he will stop 24 hours prior to and 24 hours after receiving Toradol. (2) Knee effusion, right: Code(s): M25.461 - Effusion, right knee Category: Medical Plan: Aspirated nl appearing joint fluid. Coding Level of Care Code Est Pt Level 4 (52102) Diagnoses MCL deficiency, knee M23.8X9 Knee effusion, right M25.461
--- OUTSIDE RECORDS SUMMARY | 2025-03-05 12:14 | XMS_ITS | Clinical Summary ---
Author Organization [facility] Address [address] [place] [address] Phone Care Team Providers Care Security Control Assessor Name Role Phone Mann Nugent MD Primary Care Provider [phone] Allergies No known active allergies Medications No [...] Treatment Not on file Insurance [place] [employer] [facility] [place] [id number] Care Teams Security Control Assessor Relationship Specialty Start Date End Date Mann Nugent MD [address] [facility] [address] [place] [id number] PCP - General 06/04/09
--- OUTSIDE RECORDS SUMMARY | 2025-03-05 12:14 | XMS_ITS | Clinical Summary ---
Author Organization [facility] Address [address] [place] [address] Phone Care Team Providers Care Uniform Attendant Name Role Phone Alfonzo Aly Cristina RODRIGUEZ Primary Care Provider [phone] Social History Tobacco Use Types Packs/Day Years [...] Insurance [employer] Care Teams Uniform Attendant Relationship Specialty Start Date End Date Alfonzo Aly DO [address] [place] [address] PCP - General Family Medicine 03/06/24 Additional Source Comments The information contained in this document represents components of the legal health record. It is not the complete legal health record.[facility]
--- OUTSIDE RECORDS SUMMARY | 2025-03-05 12:14 | XMS_ITS | Encounter Summary ---
Author Organization [facility] Address [address] [place], [place] [id number] Phone Care Team Providers Care Mold Sander Name Role Phone Alfonzo Aly DO Primary Care Provider [phone] Encounter Details Date Type Department Care Team (Late st Contact Info) Description 03/05/2024 Procedure Pass [address] [place] [address] Social History Tobacco Use Types Packs/Day Years [...] on filedocumented in this encounter Care Teams Mold Sander Relationship Specialty Start Date End Date Alfonzo Aly DO [address] [place], [place] [address] [address] PCP - General Family Medicine 03/06/24 documented as of this encounter Additional Source Comments The information contained in this document represents components of the legal health record. It is not the complete legal health record.[facility]
--- OUTSIDE RECORDS SUMMARY | 2025-03-05 12:14 | XMS_ITS | Continuity of Care Document ---
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 Allergic rhinitis Trevor Roy M.S., PLASTICS TOOLING ENGINEER-C Onset: 12/19/2013 Allergic rhinitis Trevor Roy M.S., PLASTICS TOOLING ENGINEER-C Onset: 12/19/2013 Allergic rhinitis caused by animals Trevor Roy M.S., PLASTICS TOOLING ENGINEER-C Onset: 12/19/2013 Allergic rhinitis caused by pollen Lynnette Bey, PLASTICS TOOLING ENGINEER-C Onset: 12/19/2013 Allergic asthma without status asthmaticus Trevor Roy M.S., PLASTICS TOOLING ENGINEER-C Onset: 12/19/2013 Exercise-induced asthma Trevor Roy M.S., PLASTICS TOOLING ENGINEER-C O nset: 11/29/2013 Difficulty breathing Trevor Roy M.S., PLASTICS TOOLING ENGINEER-C Onse t: 11/29/2013 Posterior rhinorrhea Trevor Roy M.S., PLASTICS TOOLING ENGINEER-C Onse t: 11/29/2013 Chronic rhinitis Trevor Roy M.S., PLASTICS TOOLING ENGINEER-C Onset: 0 11/29/2013 Allergies and adverse reactions Active Allergies Criticality Reaction Severity Comments Date Augmentin Unable to assess criticality Urticaria 11/29/2013 Montelukast Unable to assess criticality Mood change Moderate 02/14/2014 Inactive Allergies No Known Drug Allergies 0 11/29/2013 Medications Active Medications SIG Qnty Indications Ordering Provider Date Iqrs45lcf/Act Aerosol 2 puffs twice daily; rinse mouth after use 1units 493.00 Vitor Parekh M.D. 12/19/2013 Tuvixzoqkb77rk Tablets 1 tab by mouth every day as needed for seasonal allergies 30tabs 493.00 Trevor Roy M.S., PLASTICS TOOLING ENGINEER-C 12/19/2013 Sinus Rinse Bottle KitPacket rinse sinus twice daily; may buy zpay-wpe-swjfdar sinus rinse 1units 472.0 Trevor Roy M.S., PLASTICS TOOLING ENGINEER-C 11/29/2013 Ruktkdx94pea/Act Suspension 1 spray each nostril twice daily 1units 472.0 Trevor Roy M.S., PLASTICS TOOLING ENGINEER-C 11/29/2013 784.91 493.00 Ventolin NDE012(90Base) mcg/Act Aerosol 2 puffs every 4 hours as needed; 30min prior to exercise 1units 472.0 Trevor Roy M.S., PLASTICS TOOLING ENGINEER-C 11/29/2013 Vital Signs Date Vital Result Comment [...]
--- OUTSIDE RECORDS SUMMARY | 2025-03-05 12:14 | XMS_ITS | Encounter Summary ---
Author Organization [facility] Address [address] [place] [address] Phone Care Team Providers Care Curb Setter Name Role Phone Alfonzo Aly DO Primary Care Provider [phone] Reason for Referral * MRI/CAT Scan - Closed Specialty Diagnoses / Procedures Referred By Juan german Referred To Contact Radiology Diagnoses Right knee pain, unspecified chronicity Procedures MRI Knee (Right) Alfonzo Aly DO [address] [place] [address] Phone: tel: fax: [email or web address] Referral ID Status Reason Start Date Expiration Date Visits Re quested Visits Authorized [id number] Closed 03/05/2024 03/05/2025 1 1 Encounter Details Date Type Department Care Team (Late st Contact Info) Description 03/05/2024 Transcribe Orders Virtual Department [address] [place] [address] Alfonzo Aly DO [address] [place] [address] [email or web address] Right knee pain, unspecified chronicity (Primary Dx) [...] chronicity documented in this encounter Care Teams Curb Setter Relationship Specialty Start Date End Date Alfonzo Aly DO [address] [place] [address] [email or web address] PCP - General Family Medicine 03/06/24 documented as of this encounter Additional Source Comments The information contained in this document represents components of the legal health record. It is not the complete legal health record.[facility]
--- OUTSIDE RECORDS SUMMARY | 2025-03-05 12:14 | XMS_ITS | Clinical Summary ---
Author Organization [facility] Address [address] [facility] [place] [address] Care Team Providers Care Flight Service Specialist Name Role Phone Unavailable Primary Care Provider [...] 2023-2 5 season) 2024 Influenza Vaccine* (#1) 01/31/2025 04/21/2009, 04/28 RSV Vaccine (1 - 1-dose 75+ series) 12/16/2074 Hepatitis B Vaccine Completed 07/13/2000, 01/24/2000, 1999
== END 2025-03-05 10:31 | disposition home or self-care (01) ==
LOC: HO.HOS 10:27
PROVIDERS: Visit Provider Orthopaedic Surgery
DX: M23.8X9 Other internal derangements of unspecified knee (principal); M25.461 Effusion, right knee
CPT/HCPCS: 99214

== ENCOUNTER 2025-03-05 10:32 | Outpatient (AMB) | payer OTHER, SELFPAY ==
--- NOTE | 2025-03-05 10:33 | A.OFFVIS_ITS ---
Intake Visit Reasons: Follow Up Intake Note: Follow up visit- Feb 19, 2025. Allergies amoxicillin (From Augmentin) Allergy (Verified 04/16/25 15:07) Hives clavulanic acid (From Augmentin) Allergy (Verified 04/16/25 15:07) Hives HPI HPI Follow Up: Details: Follow up today for right knee. Murray continues to improve. He is on a restricted training schedule and is taking Diclofenac. No new complaints. PFSH Surgical History (Updated 04/16/25 @ 15:06 by Sangeeta Castle CMA) Hx of hand surgery Social History (Updated 04/16/25 @ 15:07 by Sangeeta Castle CMA) Current occupational status: student Current occupation: [employer] Physical Exam Exam Exam: moderate effusion. No focal TTP. Skin c/d/i Extrem Other: Moderate effusion unchanged from prior. MCL laxity with endpoint at 30 deg only Assessment & Plan Assessment & Plan (1) MCL deficiency, knee: Code(s): M23.8X9 - Other internal derangements of unspecified knee Category: Medical Plan: No changes to plan. Reduce swelling, hip strengthening. (2) Knee effusion, right: Code(s): M25.461 - Effusion, right knee Category: Medical Plan: Knee effusion is not worse. Remain out of contact. Coding Level of Care Code Est Pt Level 4 (46920) Diagnoses MCL deficiency, knee M23.8X9 Knee effusion, right M25.461
--- OUTSIDE RECORDS SUMMARY | 2025-03-05 12:19 | XMS_ITS | Continuity of Care Document ---
Author Organization [facility] luzmaria Soriano Address [address] [place] [address] Phone [phone] Care Team Providers Care Central Aisle Cashier Name Role Phone Alfonzo Aly DO Care Team Information Electric Motor Winder Unavailable JASE EID DPT Care Team Information Re ceiver Unavailable Mann Nugent MD Primary Care Physician Unavailab le Social History Type Date Description Comments Sex Male Sex Unknown Medications Active Medications SIG Qnty Indications Ordering Provider Date [id number] Tablets Unkn own Vital Signs Date Vital Result Comment 06/17/2024 11:07am BP Systolic 171 mmHg BP Diastolic 111 mmHg Heart Rate 117 /min Weight 315.00 lb Weight 142.884 kg Height 79 inches 6'7 Height in cm's 200.7 cm BMI (Body Mass Index) 35.5 kg/m2 [place] Body Weight 220 lb 01/30/2018 9:59am Height 79 inches 6'7 Height in cm's 200.7 cm Height Percentile 97 % [place] Body Weight 220 lb Procedures Date Code Description Status 07/25/2024 28191 Therapeutic Activities Direc t, Each 15 Minutes Completed 07/25/2024 95465 Re-Eval Of PT Es tablished Plan Of Care 20Mins Face To Face PT/Fam Completed 07/25/2024 53711 Neuromuscular Reeducation, E ach 15 Minutes Completed 07/25/2024 87485 Therapeutic Procedure, Each 15 Minutes Completed 07/25/2024 [facility] mpleted 07/23/2024 91980 Therapeutic Activities Direc t, Each 15 Minutes Completed 07/23/2024 68105 Neuromuscular Reeducation, E ach 15 Minutes Completed 07/23/2024 63352 Therapeutic Procedure, Each 15 Minutes Completed 07/22/2024 33628 Therapeutic Activities Direc t, Each 15 Minutes Completed 07/22/2024 95615 Therapeutic Procedure, Each 15 Minutes Completed 07/22/2024 70193 Neuromuscular Reeducation, E ach 15 Minutes Completed 07/19/2024 54059 Therapeutic Activities Direc t, Each 15 Minutes Completed 07/19/2024 97274 Neuromuscular Reeducation, E ach 15 Minutes Completed 07/19/2024 17647 Therapeutic Procedure, Each 15 Minutes Completed 07/19/2024 76758 Range Of Motion Measurements Each Extremity Or Trunk Section Completed 07/16/2024 97432 Neuromuscular Reeducation, E ach 15 Minutes Completed 07/16/2024 91201 Therapeutic Procedure, Each 15 Minutes Completed 07/16/2024 33935 Therapeutic Activities Direc t, Each 15 Minutes Completed 07/15/2024 70408 Therapeutic Activities Direc t, Each 15 Minutes Completed 07/15/2024 46235 Neuromuscular Reeducation, E ach 15 Minutes Completed 07/15/2024 23119 Therapeutic Procedure, Each 15 Minutes Completed 07/12/2024 50930 Therapeutic Activities Direc t, Each 15 Minutes Completed 07/12/2024 64816 Neuromuscular Reeducation, E ach 15 Minutes Completed 07/12/2024 72631 Therapeutic Procedure, Each 15 Minutes Completed 07/09/2024 10751 Therapeutic Activities Direc t, Each 15 Minutes Completed 07/09/2024 19345 Neuromuscular Reeducation, E ach 15 Minutes Completed 07/09/2024 86362 Therapeutic Procedure, Each 15 Minutes Completed 07/08/2024 13244 Therapeutic Activities Direc t, Each 15 Minutes Completed 07/08/2024 46646 Neuromuscular Reeducation, E ach 15 Minutes Completed 07/08/2024 79962 Therapeutic Procedure, Each 15 Minutes Completed 07/05/2024 75783 Therapeutic Activities Direc t, Each 15 Minutes Completed 07/05/2024 84607 Therapeutic Procedure, Each 15 Minutes Completed 07/05/2024 42046 Neuromuscular Reeducation, E ach 15 Minutes Completed 07/01/2024 12680 Therapeutic Activities Direc t, Each 15 Minutes Completed 07/01/2024 50137 Neuromuscular Reeducation, E ach 15 Minutes Completed 07/01/2024 18201 Therapeutic Procedure, Each 15 Minutes Completed 06/28/2024 61123 Therapeutic Activities Direc t, Each 15 Minutes Completed 06/28/2024 44346 Neuromuscular Reeducation, E ach 15 Minutes Completed 06/28/2024 71729 Therapeutic Procedure, Each 15 Minutes Completed 06/25/2024 37315 Therapeutic Activities Direc t, Each 15 Minutes Completed 06/25/2024 80137 Neuromuscular Reeducation, E ach 15 Minutes Completed 06/25/2024 25343 Therapeutic Procedure, Each 15 Minutes Completed 06/24/2024 56975 Neuromuscular Reeducation, E ach 15 Minutes Completed 06/24/2024 18495 Therapeutic Procedure, Each 15 Minutes Completed 06/21/2024 45296 Neuromuscular Reeducation, E ach 15 Minutes Completed 06/21/2024 05116 Therapeutic Procedure, Each 15 Minutes Completed 06/19/2024 G8417 Calculated BMI A osei Upper Parameter And Follow Up Plan Documentd Completed 06/19/2024 33566 Therapeutic Procedure, Each 15 Minutes Completed 06/19/2024 87657 Neuromuscular Reeducation, E ach 15 Minutes Completed 06/19/2024 03717 Therapeutic Activities Direc t, Each 15 Minutes Completed 06/17/2024 G8417 Calculated BMI A osei Upper Parameter And Follow Up Plan Documentd Completed 06/17/2024 06685 Therapeutic Activities Direc t, Each 15 Minutes Completed 06/17/2024 96631 Physical Therapy Eval Low Co mplexity Completed 06/17/2024 62240 Neuromuscular Reeducation, E ach 15 Minutes Completed 06/17/2024 23896 Therapeutic Procedure, Each 15 Minutes Completed 02/13/2018 84908 Post-Op Follow-Up Visit Comp leted 01/30/2018 20430 Post-Op Follow-Up Visit Comp leted 01/02/2018 71628 Post-Op Follow-Up Visit Comp leted 12/25/2017 64288 FX Metacarpal Open TX W/Wo F ixation Completed 12/25/2017 98305 Tenolysis Flexor/Extensor Te ndon Forearm/Wrist Completed 12/22/2017 [...] mass index [BMI] 35.0-3 5.9, adult Jama iDll, DPT 07/23/2024 S83.411D Sprain of medial collateral [...] mass index [BMI] 35.0-3 5.9, adult DillJama juarez, DPT 07/19/2024 S83.411D Sprain of medial collateral [...] encounter for fracture with routine healing Wily Pereyar M.D. 12/25/2017 S62.303A Unspecified frac ture of [...]
== END 2025-03-05 10:34 | disposition home or self-care (01) ==
LOC: HO.HOS 10:32
PROVIDERS: Visit Provider Orthopaedic Surgery
DX: M23.8X9 Other internal derangements of unspecified knee (principal); M25.461 Effusion, right knee
CPT/HCPCS: 99214

== ENCOUNTER → 2025-03-06 | Outpatient (BNVA) | payer SELFPAY | PROVIDERS: Visit Provider Orthopaedic Surgery | DX: Z13.89 Encounter for screening for other disorder (principal) | CPT/HCPCS: J1885 ==

== ENCOUNTER 2025-03-12 14:34 | Outpatient (AMB) | payer OTHER, SELFPAY ==
--- OUTSIDE RECORDS SUMMARY | 2024-06-20 04:20 | XMS_ITS ---
Author Organization [id number] Care Team Providers Care President [employer] Name Role Phone MEAGHAN MARLOW Unavailable Unavailable Problems Problem Type Problem Status Onset Date Resolution Date Documentation Date Authors Informants Abd pain [facility] Nausea [facility] Generalized abdominal pain [facility] Results MICROSCOPIC-URINALYSIS Result Value Reference Range Date Interpretation Method Target Site Authors Informants Leukocytes [#/area] in Urine sediment by Automated count 0 - 5 06/20 06:40 AM [facility] [id number] Erythrocytes [#/area] in Urine sediment by Automated count 0 - 2 06/20 06:40 AM [facility] [id number] Epithelial cells.squamous [#/area] in Urine sediment by Automated count 0 - 2, 3 - 5 06/20 06:40 AM [facility] [id number] Bacteria [#/area] in Urine sediment by Automated count None Seen 06/20 06:40 AM [facility] [id number] Hyaline casts [#/area] in Urine sediment by Automated count 0 - 2 06/20 06:40 AM [facility] [id number] URINALYSIS Result Value Reference Range Date Interpretation Method Target Site Authors Informants &GDT Microscopi c-Urinalys is performed due to laboratory reflex policy. 06/20 06:40 AM A [facility] [id number] Color of Urine by Auto Yellow Yellow, Dark Yellow, Light Yellow, Colorless 06/20 06:40 AM [facility] [id number] Clarity in Urine by Refractomet ry automated Clear Clear, Other, See Note, Sl Cloudy 06/20 06:40 AM [facility] [id number] Glucose [Mass/volum e] in Urine by Automated test strip Negative Negative 06/20 06:40 AM [facility] [id number] Bilirubin.t otal [Presence] in Urine by Automated test strip Negative Negative 06/20 06:40 AM [facility] [id number] Ketones [Mass/volum e] in Urine by Automated test strip Negative Negative 06/20 06:40 AM [facility] [id number] Specific gravity of Urine by Refractomet ry automated 1.036 NA 1.005-1.02 8 06/20 06:40 AM Above high normal [facility] [id number] Hemoglobin [Presence] in Urine by Automated test strip Negative Negative 06/20 06:40 AM [facility] [id number] Platelet aggregation ADP induced in Blood --10 umol/L 5.5 5.0-8.0 06/20 06:40 AM [facility] [id number] Protein [Mass/volum e] in Urine by Automated test strip Trace Negative 06/20 06:40 AM A [facility] [id number] Urobilinoge n [Units/volu me] in Urine by Test strip 0.2 mg/dL 0.2 mg/dL, 1.0 mg/dL 06/20 06:40 AM [facility] [id number] Nitrite [Presence] in Urine by Automated test strip Negative Negative 06/20 06:40 AM [facility] [id number] Leukocyte esterase [Presence] in Urine by Automated test strip Negative Negative 06/20 06:40 AM [facility] [id number] Basic metabolic 2000 panel - Serum or Plasma Result Value Reference Range Date Interpretation Method Target Site Authors Informants &GDT The CKD-EPI calculatio n is the recommende d standard for the estimation of creatinine clearance. It is similar to MDRD but removes ethnic origin from the equation. This CKD-EPI value is an approximat ion and does not necessaril y reflect an absolute decrease in kidney function. Results should be interprete d in consultati on with your healthcare provider. 06/20 06:09 AM A [facility] [id number] eGFR of 90 or higher is in the normal range eGFR of 60-89 may mean early-stage kidney disease eGFR of 15-59 may mean kidney disease eGFR below 15 may mean kidney failure Sodium [Moles/volu me] in Serum or Plasma 140 mmol/L 136-145 06/20 06:09 AM [facility] [id number] Potassium [Moles/volu me] in Serum or Plasma 4.3 mmol/L 3.5-5.1 06/20 06:09 AM [place] [id number] Chloride [Moles/volu me] in Serum or Plasma 106 mmol/L 100-110 06/20 06:09 AM [place] [id number] Carbon dioxide, total [Moles/volu me] in Serum or Plasma 26.0 mmol/L 20.0-31.0 06/20 06:09 AM [facility] [id number] Glucose [Mass/volum e] in Serum or Plasma 106 mg/dL 74-99 06/20 06:09 AM Above high normal [facility] [id number] Urea nitrogen [Mass/volum e] in Serum or Plasma 25 mg/dL 9-23 06/20 06:09 AM Above high normal [facility] [id number] Creatinine [Mass/volum e] in Serum or Plasma 1.03 mg/dL 0.73-1.18 06/20 06:09 AM [facility] [id number] Calcium [Mass/volum e] in Serum or Plasma 9.7 mg/dL 8.7-10.4 06/20 06:09 AM [facility] [id number] Anion gap in Serum or Plasma 8 mmol/L 2-10 06/20 06:09 AM [place] [id number] Glomerular filtration rate/1.73 sq M.predicted [Volume Rate/Area] in Serum or Plasma by Creatinine- based formula (CKD-EPI) 103.7 mL/min/1.7 3m*2 >60.0 06/20 06:09 [place] [id number] Glomerular filtration rate/1.73 sq M.predicted [Volume Rate/Area] in Serum, Plasma or Blood by Creatinine- based formula (MDRD) 88.72 NA 06/20 06:09 [place] [id number] CBC WITH AUTO DIFF Result Value Reference Range Date Interpretation Method Target Site Authors Informants Leukocytes [#/volume] in Blood by Automated count 6.4 10E3/u L 4.8-10.8 06/20 06:09 [facility] [id number] Erythrocytes [#/volume] in Blood by Automated count 5.28 10E6/u L 4.50-6.10 06/20 06:09 [place] [id number] Hemoglobin [Mass/volume] in Blood 15.2 g/dL 14.0-17.5 06/20 06:09 [place] [id number] Hematocrit [Volume Fraction] of Blood by Automated count 43.6 % 39.0-53.0 06/20 06:09 [place] [id number] Erythrocyte mean corpuscular volume [Entitic volume] by Automated count 82.6 fL 80.0-99.0 06/20 06:09 [place] [id number] Erythrocyte mean corpuscular hemoglobin [Entitic mass] by Automated count 28.8 pg 27.0-34.0 06/20 06:09 [place] [id number] Erythrocyte mean corpuscular hemoglobin concentration [Mass/volume] by Automated count 34.9 g/dL 31.0-37.0 06/20 06:09 [place] [id number] Platelets [#/volume] in Blood by Automated count 184 10E3/u L 130-400 06/20 06:09 [place] [id number] Nucleated erythrocytes/10 0 leukocytes [Ratio] in Blood by Automated count 0.0 % 06/20 06:09 [place] [id number] Platelet mean volume [Entitic volume] in Blood by Automated count 9.4 fL 8.0-13.0 06/20 06:09 [place] [id number] Erythrocyte distribution width [Ratio] by Automated count 13.3 % 11.0-16.0 06/20 06:09 [place] [id number] Neutrophils/100 leukocytes in Blood by Automated count 55.3 % 06/20 06:09 [place] [id number] Lymphocytes/100 leukocytes in Blood by Automated count 32.0 % 06/20 06:09 [place] [id number] Monocytes/100 leukocytes in Blood by Automated count 8.8 % 06/20 06:09 [place] [id number] Eosinophils/100 leukocytes in Blood by Automated count 2.5 % 06/20 06:09 [place] [id number] Basophils/100 leukocytes in Blood by Automated count 0.6 % 06/20 06:09 [place] [id number] Immature granulocytes/10 0 leukocytes in Blood by Automated count 0.8 % 06/20 06:09 [place] [id number] Neutrophils [#/volume] in Blood by Automated count 3.53 10E3/u L 2.00-8.00 06/20 06:09 [place] [id number] Lymphocytes [#/volume] in Blood by Automated count 2.04 10E3/u L 0.70-5.20 06/20 06:09 [place] [id number] Monocytes [#/volume] in Blood by Automated count 0.56 10E3/u L 0.10-1.30 06/20 06:09 [place] [id number] Eosinophils [#/volume] in Blood by Automated count 0.16 10E3/u L 0.04-0.54 06/20 06:09 AM [place] [id number] Basophils [#/volume] in Blood by Automated count 0.04 10E3/u L 0.00-0.21 06/20 06:09 AM [place] [id number] Immature granulocytes [#/volume] in Blood by Automated count 0.05 10E3/u L 0.00-0.03 06/20 06:09 AM Above high normal [place] [id number] Hepatic function 2000 panel - Serum or Plasma Result Value Reference Range Date Interpretation Method Target Site Authors Informants Albumin [Mass/volume] in Serum or Plasma 4.2 g/dL 3.4-5.0 06/20 06:09 AM [place] [id number] Bilirubin.total [Mass/volume] in Serum or Plasma 0.6 mg/dL 0.3-1.2 06/20 06:09 AM [place] [id number] Bilirubin.direc t [Mass/volume] in Serum or Plasma 0.2 mg/dL <=0.3 06/20 06:09 AM [place] [id number] Alkaline phosphatase [Enzymatic activity/volume ] in Serum or Plasma 89 IU/L 46-116 06/20 06:09 AM [place] [id number] Protein [Mass/volume] in Serum or Plasma 7.5 g/dL 5.7-8.2 06/20 06:09 AM [place] [id number] Aspartate aminotransferas e [Enzymatic activity/volume ] in Serum or Plasma 40 IU/L <34 06/20 06:09 AM Above high normal [place] [id number] Alanine aminotransferas e [Enzymatic activity/volume ] in Serum or Plasma 56 IU/L 10-49 06/20 06:09 AM Above high normal [place] [id number] Encounters Encounter Location Date Diagnoses Problems Providers Authors Inf ormants Note E TRH 06:31 AM - 08:20 AM Abd pain Generalized abdominal pain Nausea Attender: MEAGHAN MARLOW ([facility]) [facility] Insurance Providers Payer name Policy type / Coverage type Policy ID Covered alliance party ID Covered alliance party's relationship to schulz Policy Schulz Plan Information [facility] Adiel SHAFFER [id number] [facility] Mickey SHAFFER [id number]
--- NOTE | 2025-03-12 14:36 | MHC.OFFVIS ---
Intake Visit Reasons: Follow Up Intake Note: This is a 24 year old male that presents for follow up. Allergies amoxicillin (From Augmentin) Allergy (Verified 04/16/25 15:07) Hives clavulanic acid (From Augmentin) Allergy (Verified 04/16/25 15:07) Hives HPI HPI Follow Up: Details: Murray continues to manage his swelling and feels better this week compared to last week at this time. He is trying to wean diclofenac and obtained labs to check kidney function tests. He reports feeling some new occasional medial sided joint pain. PFSH Surgical History (Updated 04/16/25 @ 15:06 by Sangeeta Castle CMA) Hx of hand surgery Social History (Updated 04/16/25 @ 15:07 by Sangeeta Castle CMA) Current occupational status: student Current occupation: [employer] Physical Exam Extrem Other: 1+ MCL laxity at 30 deg mild effusion mild ttp medial joint lien with negative Steinmen's Assessment & Plan Assessment & Plan (1) MCL deficiency, knee: Code(s): M23.8X9 - Other internal derangements of unspecified knee Category: Medical Plan: Murray is doing well with regards to swelling and pain. His kidney function appears nl as per outside labs. He has been experimenting with weaning off diclofenac but has had some discomfort trying to practice this week. After discussing the potential dangers of NSAIDs with regards to kidney funtion and GI symptoms he would like to continue on diclofenac pausing ~48 hours prior to game, at which time he will continue 15mg IM toradol. Overall his knee has continued to improve but is still not 100%. I recommend KT MCL taping between practice/games to help stabilize the MCL. He has been having some discomfort in the medial joint line that is new. We have been using a lateral health unit supervisor to provide additional restraint to valgus force and I have cautioned him not to over-tighten this. The MCL brace does not provide him with sufficient support. We will continue to follow this closely. Coding Level of Care Code Est Pt Level 3 (14119) Diagnoses MCL deficiency, knee M23.8X9
--- OUTSIDE RECORDS SUMMARY | 2025-03-12 17:49 | XMS_ITS | Clinical Summary ---
Author Organization [facility] Address [address] [facility] [place] [address] Care Team Providers Care Car Wiper Name Role Phone Unavailable Primary Care Provider [...]
--- OUTSIDE RECORDS SUMMARY | 2025-03-12 17:49 | XMS_ITS | Encounter Summary ---
Author Organization [facility] Address [address] [place], [place] [address] Phone Care Team Providers Care Retail Performance Specialist Name Role Phone Alfonzo Aly DO Primary Care Provider [phone] Encounter Details Date Type Department Care Team (Late st Contact Info) Description 03/05/2024 Procedure Pass [address] [place] [address] Social History Tobacco Use Types Packs/Day Years [...] on filedocumented in this encounter Care Teams Retail Performance Specialist Relationship Specialty Start Date End Date Alfonzo Aly DO [address] [place], [place] [address] [place] [id number] PCP - General Family Medicine 03/06/24 documented as of this encounter Additional Source Comments The information contained in this document represents components of the legal health record. It is not the complete legal health record.[facility]
--- OUTSIDE RECORDS SUMMARY | 2025-03-12 17:49 | XMS_ITS | Continuity of Care Document ---
Author Organization [facility] luzmaria Soriano Address [address] [place] [address] Phone [phone] Care Team Providers Care Director Of Assessment Name Role Phone Alfonzo Aly DO Care Team Information Cutting Machine Operator Unavailable JASE EID DPT Care Team Information Re ceiver Unavailable Mann Nugent MD Primary Care Physician Unavailab le Social History Type Date Description Comments Sex Male Sex Unknown Medications Active Medications SIG Qnty Indications Ordering Provider Date [id number] Tablets Unkn own Vital Signs Date Vital Result Comment 06/17/2024 11:07am BP Systolic 171 mmHg BP Diastolic 111 mmHg Heart Rate 117 /min Weight 315.00 lb Weight 142.884 kg Height 79 inches 6'7 Height in cm's 200.7 cm BMI (Body Mass Index) 35.5 kg/m2 [place] Body Weight 220 lb 01/30/2018 9:59am Height 79 inches 6'7 Height in cm's 200.7 cm Height Percentile 97 % [place] Body Weight 220 lb Procedures Date Code Description Status 07/25/2024 05821 Therapeutic Activities Direc t, Each 15 Minutes Completed 07/25/2024 32467 Re-Eval Of PT Es tablished Plan Of Care 20Mins Face To Face PT/Fam Completed 07/25/2024 96162 Neuromuscular Reeducation, E ach 15 Minutes Completed 07/25/2024 63882 Therapeutic Procedure, Each 15 Minutes Completed 07/25/2024 [facility] mpleted 07/23/2024 97304 Therapeutic Activities Direc t, Each 15 Minutes Completed 07/23/2024 45064 Neuromuscular Reeducation, E ach 15 Minutes Completed 07/23/2024 43141 Therapeutic Procedure, Each 15 Minutes Completed 07/22/2024 07036 Therapeutic Activities Direc t, Each 15 Minutes Completed 07/22/2024 19967 Therapeutic Procedure, Each 15 Minutes Completed 07/22/2024 83567 Neuromuscular Reeducation, E ach 15 Minutes Completed 07/19/2024 08255 Therapeutic Activities Direc t, Each 15 Minutes Completed 07/19/2024 46662 Neuromuscular Reeducation, E ach 15 Minutes Completed 07/19/2024 08809 Therapeutic Procedure, Each 15 Minutes Completed 07/19/2024 43027 Range Of Motion Measurements Each Extremity Or Trunk Section Completed 07/16/2024 67792 Neuromuscular Reeducation, E ach 15 Minutes Completed 07/16/2024 24194 Therapeutic Procedure, Each 15 Minutes Completed 07/16/2024 06013 Therapeutic Activities Direc t, Each 15 Minutes Completed 07/15/2024 30575 Therapeutic Activities Direc t, Each 15 Minutes Completed 07/15/2024 68822 Neuromuscular Reeducation, E ach 15 Minutes Completed 07/15/2024 89808 Therapeutic Procedure, Each 15 Minutes Completed 07/12/2024 53602 Therapeutic Activities Direc t, Each 15 Minutes Completed 07/12/2024 08483 Neuromuscular Reeducation, E ach 15 Minutes Completed 07/12/2024 58065 Therapeutic Procedure, Each 15 Minutes Completed 07/09/2024 47233 Therapeutic Activities Direc t, Each 15 Minutes Completed 07/09/2024 83589 Neuromuscular Reeducation, E ach 15 Minutes Completed 07/09/2024 56500 Therapeutic Procedure, Each 15 Minutes Completed 07/08/2024 47313 Therapeutic Activities Direc t, Each 15 Minutes Completed 07/08/2024 12324 Neuromuscular Reeducation, E ach 15 Minutes Completed 07/08/2024 21607 Therapeutic Procedure, Each 15 Minutes Completed 07/05/2024 80370 Therapeutic Activities Direc t, Each 15 Minutes Completed 07/05/2024 46299 Therapeutic Procedure, Each 15 Minutes Completed 07/05/2024 08948 Neuromuscular Reeducation, E ach 15 Minutes Completed 07/01/2024 60862 Therapeutic Activities Direc t, Each 15 Minutes Completed 07/01/2024 90139 Neuromuscular Reeducation, E ach 15 Minutes Completed 07/01/2024 87466 Therapeutic Procedure, Each 15 Minutes Completed 06/28/2024 65270 Therapeutic Activities Direc t, Each 15 Minutes Completed 06/28/2024 56366 Neuromuscular Reeducation, E ach 15 Minutes Completed 06/28/2024 97727 Therapeutic Procedure, Each 15 Minutes Completed 06/25/2024 32146 Therapeutic Activities Direc t, Each 15 Minutes Completed 06/25/2024 44807 Neuromuscular Reeducation, E ach 15 Minutes Completed 06/25/2024 58643 Therapeutic Procedure, Each 15 Minutes Completed 06/24/2024 21703 Neuromuscular Reeducation, E ach 15 Minutes Completed 06/24/2024 20861 Therapeutic Procedure, Each 15 Minutes Completed 06/21/2024 24925 Neuromuscular Reeducation, E ach 15 Minutes Completed 06/21/2024 30178 Therapeutic Procedure, Each 15 Minutes Completed 06/19/2024 G8417 Calculated BMI A osei Upper Parameter And Follow Up Plan Documentd Completed 06/19/2024 18900 Therapeutic Procedure, Each 15 Minutes Completed 06/19/2024 68786 Neuromuscular Reeducation, E ach 15 Minutes Completed 06/19/2024 57152 Therapeutic Activities Direc t, Each 15 Minutes Completed 06/17/2024 G8417 Calculated BMI A osei Upper Parameter And Follow Up Plan Documentd Completed 06/17/2024 87827 Therapeutic Activities Direc t, Each 15 Minutes Completed 06/17/2024 67376 Physical Therapy Eval Low Co mplexity Completed 06/17/2024 48728 Neuromuscular Reeducation, E ach 15 Minutes Completed 06/17/2024 06428 Therapeutic Procedure, Each 15 Minutes Completed 02/13/2018 60521 Post-Op Follow-Up Visit Comp leted 01/30/2018 72606 Post-Op Follow-Up Visit Comp leted 01/02/2018 74032 Post-Op Follow-Up Visit Comp leted 12/25/2017 12365 FX Metacarpal Open TX W/Wo F ixation Completed 12/25/2017 17311 Tenolysis Flexor/Extensor Te ndon Forearm/Wrist Completed 12/22/2017 [...]
--- OUTSIDE RECORDS SUMMARY | 2025-03-12 17:49 | XMS_ITS | Clinical Summary ---
Author Organization [facility] Address [address] [place] [address] Phone Care Team Providers Care Medicine Man Name Role Phone Mann Nugent MD Primary Care Provider [phone] Allergies No known active allergies Medications No [...] Treatment Not on file Insurance [place] [facility] [place] [id number] Care Teams Medicine Man Relationship Specialty Start Date End Date Mann Nugent MD [address] [facility] [address] [place] [id number] PCP - General 06/04/09
--- OUTSIDE RECORDS SUMMARY | 2025-03-12 17:49 | XMS_ITS | Continuity of Care Document ---
Author Organization [facility] Address [address] [place] [address] Phone [phone] Care Team Providers Care Special Education Secretary Name Role Phone Mann Nugent MD Care Team Information Jewelry Sales Associate U MAIN Luis MD Care Team Information Jewelry Sales Associate U Mann Morales MD Primary Care Physician Unavailab le Problems Active Problems Provider Date 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 Allergic rhinitis Trevor Roy M.S., TOW OPERATOR-C Onset: 12/19/2013 Allergic rhinitis Trevor Roy M.S., TOW OPERATOR-C Onset: 12/19/2013 Allergic rhinitis caused by animals Trevor Roy M.S., TOW OPERATOR-C Onset: 12/19/2013 Allergic rhinitis caused by pollen Lynnette Bey, TOW OPERATOR-C Onset: 12/19/2013 Allergic asthma without status asthmaticus Trevor Roy M.S., TOW OPERATOR-C Onset: 12/19/2013 Exercise-induced asthma Trevor Roy M.S., TOW OPERATOR-C O nset: 11/29/2013 Difficulty breathing Trevor Roy M.S., TOW OPERATOR-C Onse t: 11/29/2013 Posterior rhinorrhea Trevor Roy M.S., TOW OPERATOR-C Onse t: 11/29/2013 Chronic rhinitis Trevor Roy M.S., TOW OPERATOR-C Onset: 0 11/29/2013 Allergies and adverse reactions Active Allergies Criticality Reaction Severity Comments Date Augmentin Unable to assess criticality Urticaria 11/29/2013 Montelukast Unable to assess criticality Mood change Moderate 02/14/2014 Inactive Allergies No Known Drug Allergies 0 11/29/2013 Medications Active Medications SIG Qnty Indications Ordering Provider Date Hzkr64pbx/Act Aerosol 2 puffs twice daily; rinse mouth after use 1units 493.00 Vitor Parekh M.D. 12/19/2013 Vklespxkrg97pl Tablets 1 tab by mouth every day as needed for seasonal allergies 30tabs 493.00 Trevor Roy M.S., TOW OPERATOR-C 12/19/2013 Sinus Rinse Bottle KitPacket rinse sinus twice daily; may buy enpj-wds-gclmzqr sinus rinse 1units 472.0 Trevor Roy M.S., TOW OPERATOR-C 11/29/2013 Upwlihm35wrx/Act Suspension 1 spray each nostril twice daily 1units 472.0 Trevor Roy M.S., TOW OPERATOR-C 11/29/2013 784.91 493.00 Ventolin LQS708(90Base) mcg/Act Aerosol 2 puffs every 4 hours as needed; 30min prior to exercise 1units 472.0 Trevor Roy M.S., TOW OPERATOR-C 11/29/2013 Vital Signs Date Vital Result Comment [...]
--- OUTSIDE RECORDS SUMMARY | 2025-03-12 17:49 | XMS_ITS | Clinical Summary ---
Author Organization [facility] Address [address] [place] [address] Phone Care Team Providers Care Commercial Plumber Name Role Phone Alfonzo Aly Cristina RODRIGUEZ Primary Care Provider [phone] Social History Tobacco Use Types Packs/Day Years [...] HIV ONE-TIME SCREENING (18-6 5 YEARS) 12/16/2017 INFLUENZA VACCINE (#1) 2025 COVID-19 VACCINE (2023-2 5 season) 2025 HEPATITIS A VACCINES Aged Out No long [...] on file Insurance [employer] CIG[employer] C[employer] CIG[employer] WELLF[employer]ET Care Teams Commercial Plumber Relationship Specialty Start Date End Date Alfonzo Aly DO [address] [place] [id number] PCP - General Family Medicine 03/06/24 Additional Source Comments The information contained in this document represents components of the legal health record. It is not the complete legal health record.[facility]
--- OUTSIDE RECORDS SUMMARY | 2025-03-12 17:49 | XMS_ITS | Encounter Summary ---
Author Organization [facility] Address [address] [place] [address] Phone Care Team Providers Care Unit Receptionist Name Role Phone Alfonzo Aly DO Primary Care Provider Reason for Referral * MRI/CAT Scan - Closed Specialty Diagnoses / Procedures Referred By Juan german Referred To Contact Radiology Diagnoses Right knee pain, unspecified chronicity Procedures MRI Knee (Right) Alfonzo Aly DO [address] [place] [address] Phone: tel: fax: [email or web address] Referral ID Status Reason Start Date Expiration Date Visits Re quested Visits Authorized [id number] Closed 03/05/2024 03/05/2025 1 1 Encounter Details Date Type Department Care Team (Late st Contact Info) Description 03/05/2024 Transcribe Orders Virtual Department [address] [place] [address] Alfonzo Aly DO [address] [place] [address] [email or web address] Right knee pain, unspecified chronicity (Primary Dx) [...] chronicity documented in this encounter Care Teams Unit Receptionist Relationship Specialty Start Date End Date Alfonzo Aly DO [address] [place] [address] [email or web address] PCP - General Family Medicine 03/06/24 documented as of this encounter Additional Source Comments The information contained in this document represents components of the legal health record. It is not the complete legal health record.[facility]
== END 2025-03-12 14:36 | disposition home or self-care (01) ==
LOC: HO.HOS 14:34
PROVIDERS: Visit Provider Orthopaedic Surgery
DX: M23.8X1 Other internal derangements of right knee (principal)
CPT/HCPCS: 99213

== ENCOUNTER 2025-03-21 14:35 | Outpatient (AMB) | payer OTHER, SELFPAY ==
--- NOTE | 2025-03-21 14:36 | MHC.OFFVIS ---
Intake Visit Reasons: Follow Up Intake Note: This is a 24 year old patient who presents for a follow up. Allergies amoxicillin (From Augmentin) Allergy (Verified 04/16/25 15:07) Hives clavulanic acid (From Augmentin) Allergy (Verified 04/16/25 15:07) Hives HPI HPI Follow Up: Details: Murray continues to manage his swelling and feels better this week compared to last week at this time. He is trying to wean diclofenac and obtained labs to check kidney function tests. He reports feeling some new occasional medial sided joint pain. PFSH Surgical History (Updated 04/16/25 @ 15:06 by Sangeeta Castle CMA) Hx of hand surgery Social History (Updated 04/16/25 @ 15:07 by Sangeeta Castle CMA) Current occupational status: student Current occupation: [employer] Physical Exam Exam Exam: moderate effusion. No focal TTP. Skin c/d/i Extrem Other: 1+ effusion TTP medial joint line ( baseline) TTP lateral retropatellar ( baseline) Assessment & Plan Assessment & Plan (1) MCL deficiency, knee: Code(s): M23.8X9 - Other internal derangements of unspecified knee Category: Medical Plan: Continue current plan. No changes. Coding Level of Care Code Est Pt Level 2 (58126) Diagnoses MCL deficiency, knee M23.8X9
--- OUTSIDE RECORDS SUMMARY | 2025-03-21 14:41 | XMS_ITS | Continuity of Care Document ---
Author Organization [facility] luzmaria Soriano Address [address] [place] [address] Phone [phone] Care Team Providers Care Configuration Management Advisor Name Role Phone Alfonzo Aly DO Care Team Information Talent Consultant Unavailable JASE EID DPT Care Team Information Re ceiver Unavailable Mann Nugent MD Primary Care Physician Unavailab le Social History Type Date Description Comments Sex Male Sex Unknown Medications Active Medications SIG Qnty Indications Ordering Provider Date [id number] Tablets Unkn own Vital Signs Date Vital Result Comment 06/17/2024 11:07am BP Systolic 171 mmHg BP Diastolic 111 mmHg Heart Rate 117 /min Weight 315.00 lb Weight 142.884 kg Height 79 inches 6'7 Height in cm's 200.7 cm BMI (Body Mass Index) 35.5 kg/m2 [place] [facility] Weight 220 lb 01/30/2018 9:59am Height 79 inches 6'7 Height in cm's 200.7 cm Height Percentile 97 % [place] [facility] Weight 220 lb Procedures Date Code Description Status 07/25/2024 71754 Therapeutic Activities Direc t, Each 15 Minutes Completed 07/25/2024 58065 Re-Eval Of PT Es tablished Plan Of Care 20Mins Face To Face PT/Fam Completed 07/25/2024 56838 Neuromuscular Reeducation, E ach 15 Minutes Completed 07/25/2024 11810 Therapeutic Procedure, Each 15 Minutes Completed 07/25/2024 [facility] [employer] [facility] mpleted 07/23/2024 91130 Therapeutic Activities Direc t, Each 15 Minutes Completed 07/23/2024 19383 Neuromuscular Reeducation, E ach 15 Minutes Completed 07/23/2024 15721 Therapeutic Procedure, Each 15 Minutes Completed 07/22/2024 49938 Therapeutic Activities Direc t, Each 15 Minutes Completed 07/22/2024 37630 Therapeutic Procedure, Each 15 Minutes Completed 07/22/2024 49656 Neuromuscular Reeducation, E ach 15 Minutes Completed 07/19/2024 60136 Therapeutic Activities Direc t, Each 15 Minutes Completed 07/19/2024 12289 Neuromuscular Reeducation, E ach 15 Minutes Completed 07/19/2024 15069 Therapeutic Procedure, Each 15 Minutes Completed 07/19/2024 78612 Range Of Motion Measurements Each Extremity Or Trunk Section Completed 07/16/2024 02067 Neuromuscular Reeducation, E ach 15 Minutes Completed 07/16/2024 07747 Therapeutic Procedure, Each 15 Minutes Completed 07/16/2024 81282 Therapeutic Activities Direc t, Each 15 Minutes Completed 07/15/2024 50266 Therapeutic Activities Direc t, Each 15 Minutes Completed 07/15/2024 96440 Neuromuscular Reeducation, E ach 15 Minutes Completed 07/15/2024 66417 Therapeutic Procedure, Each 15 Minutes Completed 07/12/2024 09856 Therapeutic Activities Direc t, Each 15 Minutes Completed 07/12/2024 68550 Neuromuscular Reeducation, E ach 15 Minutes Completed 07/12/2024 19885 Therapeutic Procedure, Each 15 Minutes Completed 07/09/2024 04013 Therapeutic Activities Direc t, Each 15 Minutes Completed 07/09/2024 52184 Neuromuscular Reeducation, E ach 15 Minutes Completed 07/09/2024 74831 Therapeutic Procedure, Each 15 Minutes Completed 07/08/2024 08363 Therapeutic Activities Direc t, Each 15 Minutes Completed 07/08/2024 87642 Neuromuscular Reeducation, E ach 15 Minutes Completed 07/08/2024 97458 Therapeutic Procedure, Each 15 Minutes Completed 07/05/2024 33357 Therapeutic Activities Direc t, Each 15 Minutes Completed 07/05/2024 27976 Therapeutic Procedure, Each 15 Minutes Completed 07/05/2024 41878 Neuromuscular Reeducation, E ach 15 Minutes Completed 07/01/2024 99494 Therapeutic Activities Direc t, Each 15 Minutes Completed 07/01/2024 24674 Neuromuscular Reeducation, E ach 15 Minutes Completed 07/01/2024 84409 Therapeutic Procedure, Each 15 Minutes Completed 06/28/2024 62574 Therapeutic Activities Direc t, Each 15 Minutes Completed 06/28/2024 01696 Neuromuscular Reeducation, E ach 15 Minutes Completed 06/28/2024 95830 Therapeutic Procedure, Each 15 Minutes Completed 06/25/2024 06481 Therapeutic Activities Direc t, Each 15 Minutes Completed 06/25/2024 71141 Neuromuscular Reeducation, E ach 15 Minutes Completed 06/25/2024 67222 Therapeutic Procedure, Each 15 Minutes Completed 06/24/2024 70672 Neuromuscular Reeducation, E ach 15 Minutes Completed 06/24/2024 45311 Therapeutic Procedure, Each 15 Minutes Completed 06/21/2024 33702 Neuromuscular Reeducation, E ach 15 Minutes Completed 06/21/2024 67686 Therapeutic Procedure, Each 15 Minutes Completed 06/19/2024 G8417 Calculated BMI A osei Upper Parameter And Follow Up Plan Documentd Completed 06/19/2024 00671 Therapeutic Procedure, Each 15 Minutes Completed 06/19/2024 35942 Neuromuscular Reeducation, E ach 15 Minutes Completed 06/19/2024 32340 Therapeutic Activities Direc t, Each 15 Minutes Completed 06/17/2024 G8417 Calculated BMI A osei Upper Parameter And Follow Up Plan Documentd Completed 06/17/2024 80725 Therapeutic Activities Direc t, Each 15 Minutes Completed 06/17/2024 24541 Physical Therapy Eval Low Co mplexity Completed 06/17/2024 74861 Neuromuscular Reeducation, E ach 15 Minutes Completed 06/17/2024 15098 Therapeutic Procedure, Each 15 Minutes Completed 02/13/2018 65229 Post-Op Follow-Up Visit Comp leted 01/30/2018 39811 Post-Op Follow-Up Visit Comp leted 01/02/2018 01982 Post-Op Follow-Up Visit Comp leted 12/25/2017 88919 FX Metacarpal Open TX W/Wo F ixation Completed 12/25/2017 10271 Tenolysis Flexor/Extensor Te ndon Forearm/Wrist Completed 12/22/2017 [...] ligament of right knee, subsequent encounter Jama Dlil, DPT 07/09/2024 M25.561 Pain in right knee [...]
--- OUTSIDE RECORDS SUMMARY | 2025-03-21 14:41 | XMS_ITS | Clinical Summary ---
Author Organization [facility] Address [address] [place] [address] Phone Care Team Providers Care Supervisor Soldering Name Role Phone Alfonzo Aly Cristina RODRIGUEZ Primary Care Provider [phone] Social History Tobacco Use Types Packs/Day Years [...] WELLFLEET [employer]IG[employer] WELLFLEET [employer] WELLFLEET Care Teams Supervisor Soldering Relationship Specialty Start Date End Date Alfonzo Aly DO [address] [place] [address] PCP - General Family Medicine 03/06/24 Additional Source Comments The information contained in this document represents components of the legal health record. It is not the complete legal health record.[facility]
--- OUTSIDE RECORDS SUMMARY | 2025-03-21 14:41 | XMS_ITS | Encounter Summary ---
Author Organization [facility] Address [address] [place], [place] [address] Phone Care Team Providers Care Direct Entry Midwife Name Role Phone Alfonzo Aly DO Primary Care Provider [phone] Encounter Details Date Type Department Care Team (Late st Contact Info) Description 03/05/2024 Procedure Pass [address] [place] [address] Social History Tobacco Use Types Packs/Day Years [...] on filedocumented in this encounter Care Teams Direct Entry Midwife Relationship Specialty Start Date End Date Alfonzo Aly DO [address] [place], [place] [address] [place] [address] PCP - General Family Medicine 03/06/24 documented as of this encounter Additional Source Comments The information contained in this document represents components of the legal health record. It is not the complete legal health record.[facility]
--- OUTSIDE RECORDS SUMMARY | 2025-03-21 14:41 | XMS_ITS | Continuity of Care Document ---
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 Allergic rhinitis Trevor Roy M.S., [employer] OPERATOR-C Onset: 12/19/2013 Allergic rhinitis Trevor Roy M.S., [employer] HY[employer] OPERATOR-C Onset: 12/19/2013 Allergic rhinitis caused by animals Trevor Roy M.S., [employer] HY[employer]OXIDE OPERATOR-C Onset: 12/19/2013 Allergic rhinitis caused by pollen Lynnette Bey, [employer] OPERATOR-C Onset: 12/19/2013 Allergic asthma without status asthmaticus Trevor Roy M.S., [employer] HY[employer] OPERATOR-C Onset: 12/19/2013 Exercise-induced asthma Trevor Roy M.S., [employer] HY[employer] OPERATOR-C O nset: 11/29/2013 Difficulty breathing Trevor Roy M.S., [employer] HY[employer] OPERATOR-C Onse t: 11/29/2013 Posterior rhinorrhea Trevor Roy M.S., [employer] HY[employer]OXIDE OPERATOR-C Onse t: 11/29/2013 Chronic rhinitis Trevor Roy M.S., [employer] HY[employer] OPERATOR-C Onset: 0 11/29/2013 Allergies and adverse reactions Active Allergies Criticality Reaction Severity Comments Date Augmentin Unable to assess criticality Urticaria 11/29/2013 Montelukast Unable to assess criticality Mood change Moderate 02/14/2014 Inactive Allergies No Known Drug Allergies 0 11/29/2013 Medications Active Medications SIG Qnty Indications Ordering Provider Date Wmdx87wlz/Act Aerosol 2 puffs twice daily; rinse mouth after use 1units 493.00 Vitor Parekh M.D. 12/19/2013 Zlwwccsbov51ew Tablets 1 tab by mouth every day as needed for seasonal allergies 30tabs 493.00 Trevor Roy M.S., [employer] OPERATOR-C 12/19/2013 Sinus Rinse Bottle KitPacket rinse sinus twice daily; may buy qudd-nzn-kadeokw sinus rinse 1units 472.0 Trevor Roy M.S., [employer] HY[employer] OPERATOR-C 11/29/2013 Cijkalp24bkg/Act Suspension 1 spray each nostril twice daily 1units 472.0 Trevor Roy M.S., [employer] HY[employer]OX[employer] OPERATOR-C 11/29/2013 784.91 493.00 Ventolin EHS204(90Base) mcg/Act Aerosol 2 puffs every 4 hours as needed; 30min prior to exercise 1units 472.0 Trevor Roy M.S., [employer] HY[employer] OPERATOR-C 11/29/2013 Vital Signs Date Vital Result [...]
--- OUTSIDE RECORDS SUMMARY | 2025-03-21 14:41 | XMS_ITS | Encounter Summary ---
Author Organization [facility] Address [address] [place] [address] Phone Care Team Providers Care Plaster Lather Name Role Phone Alfonzo Aly DO Primary Care Provider [phone] Reason for Referral * MRI/CAT Scan - Closed Specialty Diagnoses / Procedures Referred By Juan german Referred To Contact Radiology Diagnoses Right knee pain, unspecified chronicity Procedures MRI Knee (Right) Alfonzo Aly DO [address] [place] [address] Phone: tel: fax: [email or web address] Referral ID Status Reason Start Date Expiration Date Visits Re quested Visits Authorized [id number] Closed 03/05/2024 03/05/2025 1 1 Encounter Details Date Type Department Care Team (Late st Contact Info) Description 03/05/2024 Transcribe Orders Virtual Department [address] [place] [address] Alfonzo Aly DO [address] [place] [address] [email or web address] Right knee pain, unspecified chronicity (Primary Dx) [...] chronicity documented in this encounter Care Teams Plaster Lather Relationship Specialty Start Date End Date Alfonzo Aly DO [address] [place] [address] [email or web address] PCP - General Family Medicine 03/06/24 documented as of this encounter Additional Source Comments The information contained in this document represents components of the legal health record. It is not the complete legal health record.[facility]
--- OUTSIDE RECORDS SUMMARY | 2025-03-21 14:41 | XMS_ITS | Clinical Summary ---
Author Organization [facility] Address [address] [place] [address] Phone Care Team Providers Care Special Needs Child Caregiver Name Role Phone Mann Nugent MD Primary Care Provider [phone] Allergies No known active allergies Medications No [...] Treatment Not on file Insurance [place] GARCIA [employer] [facility] [place] [id number] Care Teams Special Needs Child Caregiver Relationship Specialty Start Date End Date Mann Nugent MD [address] [facility] [address] [place] [phone] PCP - General 06/04/09
--- OUTSIDE RECORDS SUMMARY | 2025-03-21 14:41 | XMS_ITS | Clinical Summary ---
Author Organization [facility] Address [address] [place] [address] Care Team Providers Care Sales Service Assistant Name Role Phone Unavailable Primary Care Provider [...] 01/21/2021 01/21/2011, 12/31, 08/06/2001, Additional history exists Influenza Vaccine* (#1) 01/31/2025 04/21/2009, 04/28 COVID-19 Vaccine ( - 2023-2 5 season) 2025 RSV Vaccine (1 - 1-dose 75+ series) 12/16/2074 Hepatitis B Vaccine Completed 07/13/2000, 01/24/2000, 1999
== END 2025-03-21 14:37 | disposition home or self-care (01) ==
LOC: HO.HOS 14:35
PROVIDERS: Visit Provider Orthopaedic Surgery
DX: M23.8X1 Other internal derangements of right knee (principal)
CPT/HCPCS: 99213

== ENCOUNTER 2025-04-04 13:14 | Outpatient (AMB) | payer OTHER, SELFPAY ==
--- NOTE | 2025-04-04 13:16 | A.OFFVIS_ITS ---
Intake Visit Reasons: Follow Up Emergency Operator Required: No Allergies amoxicillin (From Augmentin) Allergy (Verified 04/16/25 15:07) Hives clavulanic acid (From Augmentin) Allergy (Verified 04/16/25 15:07) Hives HPI HPI Follow Up: Details: No new events. Still with right knee pain and swelling that is baseline. PFSH Surgical History (Updated 04/16/25 @ 15:06 by Sangeeta Castle CMA) Hx of hand surgery Social History (Updated 04/16/25 @ 15:07 by Sangeeta Castle CMA) Current occupational status: student Current occupation: [employer] Physical Exam Exam Exam: 1+ effusion MCL TTP with 1+ instability Assessment & Plan Assessment & Plan (1) MCL deficiency, knee: Code(s): M23.8X9 - Other internal derangements of unspecified knee Category: Medical Plan: MCL deficient knee that is stable enough for him to play braced. Has done well but is still requiring NSAIDs to control swelling. No changes from prior exam. Continue brace and taping and rest between games. 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
--- OUTSIDE RECORDS SUMMARY | 2025-04-04 13:41 | XMS_ITS | Clinical Summary ---
Author Organization [facility] Address [address] [facility] [place] [address] Care Team Providers Care Grinder Set Up Operator Thread Tool Name Role Phone Unavailable Primary Care Provider [...]
--- OUTSIDE RECORDS SUMMARY | 2025-04-04 13:41 | XMS_ITS | Clinical Summary ---
Author Organization [facility] Address [address] [place] [address] Phone Care Team Providers Care Back Panel Padder Name Role Phone Mann Nugent MD Primary Care Provider [phone] Allergies No known active allergies Medications No [...] Treatment Not on file Insurance G[place] GARCIA [employer] [facility] [place] [id number] Care Teams Back Panel Padder Relationship Specialty Start Date End Date Mann Nugent MD [address] [facility] [address] [place] [phone] PCP - General 06/04/09
--- OUTSIDE RECORDS SUMMARY | 2025-04-04 13:41 | XMS_ITS | Encounter Summary ---
Author Organization [facility] Address [address] [place] [address] Phone Care Team Providers Care Warehouse Manager Name Role Phone Alfonzo Aly DO Primary Care Provider [phone] Reason for Referral * MRI/CAT Scan - Closed Specialty Diagnoses / Procedures Referred By Juan german Referred To Contact Radiology Diagnoses Right knee pain, unspecified chronicity Procedures MRI Knee (Right) Alfonzo Aly DO [address] [place] [address] Phone: tel: fax: [email or web address] Referral ID Status Reason Start Date Expiration Date Visits Re quested Visits Authorized [id number] Closed 03/05/2024 03/05/2025 1 1 Encounter Details Date Type Department Care Team (Late st Contact Info) Description 03/05/2024 Transcribe Orders Virtual Department [address] [place] [address] Alfonzo Aly DO [address] [place] [address] [email or web address] Right knee pain, unspecified chronicity (Primary Dx) [...] chronicity documented in this encounter Care Teams Warehouse Manager Relationship Specialty Start Date End Date Alfonzo Aly DO [address] [place] [address] [email or web address] PCP - General Family Medicine 03/06/24 documented as of this encounter Additional Source Comments The information contained in this document represents components of the legal health record. It is not the complete legal health record.[facility]
--- OUTSIDE RECORDS SUMMARY | 2025-04-04 13:41 | XMS_ITS | Continuity of Care Document ---
Author Organization [facility] luzmaria Soriano Address [address] [place] [address] Phone [phone] Care Team Providers Care Engineering Systems Analyst Name Role Phone Alfonzo Aly DO Care Team Information Live Out Nanny Unavailable JASE EID DPT Care Team Information Re ceiver Unavailable Mann Nugent MD Primary Care Physician Unavailab le Social History Type Date Description Comments Sex Male Sex Unknown Medications Active Medications SIG Qnty Indications Ordering Provider Date [id number] Tablets Unkn own Vital Signs Date Vital Result Comment 06/17/2024 11:07am BP Systolic 171 mmHg BP Diastolic 111 mmHg Heart Rate 117 /min Weight 315.00 lb Weight 142.884 kg Height 79 inches 6'7 Height in cm's 200.7 cm BMI (Body Mass Index) 35.5 kg/m2 [place] Body Weight 220 lb 01/30/2018 9:59am Height 79 inches 6'7 Height in cm's 200.7 cm Height Percentile 97 % [place] Body Weight 220 lb Procedures Date Code Description Status 07/25/2024 92387 Therapeutic Activities Direc t, Each 15 Minutes Completed 07/25/2024 77224 Re-Eval Of PT Es tablished Plan Of Care 20Mins Face To Face PT/Fam Completed 07/25/2024 87453 Neuromuscular Reeducation, E ach 15 Minutes Completed 07/25/2024 22509 Therapeutic Procedure, Each 15 Minutes Completed 07/25/2024 [facility] [employer] mpleted 07/23/2024 11881 Therapeutic Activities Direc t, Each 15 Minutes Completed 07/23/2024 02064 Neuromuscular Reeducation, E ach 15 Minutes Completed 07/23/2024 26478 Therapeutic Procedure, Each 15 Minutes Completed 07/22/2024 27151 Therapeutic Activities Direc t, Each 15 Minutes Completed 07/22/2024 41445 Therapeutic Procedure, Each 15 Minutes Completed 07/22/2024 63331 Neuromuscular Reeducation, E ach 15 Minutes Completed 07/19/2024 33693 Therapeutic Activities Direc t, Each 15 Minutes Completed 07/19/2024 93269 Neuromuscular Reeducation, E ach 15 Minutes Completed 07/19/2024 62226 Therapeutic Procedure, Each 15 Minutes Completed 07/19/2024 32725 Range Of Motion Measurements Each Extremity Or Trunk Section Completed 07/16/2024 47272 Neuromuscular Reeducation, E ach 15 Minutes Completed 07/16/2024 35976 Therapeutic Procedure, Each 15 Minutes Completed 07/16/2024 36724 Therapeutic Activities Direc t, Each 15 Minutes Completed 07/15/2024 17755 Therapeutic Activities Direc t, Each 15 Minutes Completed 07/15/2024 08009 Neuromuscular Reeducation, E ach 15 Minutes Completed 07/15/2024 42092 Therapeutic Procedure, Each 15 Minutes Completed 07/12/2024 04577 Therapeutic Activities Direc t, Each 15 Minutes Completed 07/12/2024 16244 Neuromuscular Reeducation, E ach 15 Minutes Completed 07/12/2024 45515 Therapeutic Procedure, Each 15 Minutes Completed 07/09/2024 51368 Therapeutic Activities Direc t, Each 15 Minutes Completed 07/09/2024 82272 Neuromuscular Reeducation, E ach 15 Minutes Completed 07/09/2024 30415 Therapeutic Procedure, Each 15 Minutes Completed 07/08/2024 76691 Therapeutic Activities Direc t, Each 15 Minutes Completed 07/08/2024 25399 Neuromuscular Reeducation, E ach 15 Minutes Completed 07/08/2024 16000 Therapeutic Procedure, Each 15 Minutes Completed 07/05/2024 59178 Therapeutic Activities Direc t, Each 15 Minutes Completed 07/05/2024 69120 Therapeutic Procedure, Each 15 Minutes Completed 07/05/2024 58402 Neuromuscular Reeducation, E ach 15 Minutes Completed 07/01/2024 83318 Therapeutic Activities Direc t, Each 15 Minutes Completed 07/01/2024 43103 Neuromuscular Reeducation, E ach 15 Minutes Completed 07/01/2024 29180 Therapeutic Procedure, Each 15 Minutes Completed 06/28/2024 67545 Therapeutic Activities Direc t, Each 15 Minutes Completed 06/28/2024 23650 Neuromuscular Reeducation, E ach 15 Minutes Completed 06/28/2024 46437 Therapeutic Procedure, Each 15 Minutes Completed 06/25/2024 69414 Therapeutic Activities Direc t, Each 15 Minutes Completed 06/25/2024 57141 Neuromuscular Reeducation, E ach 15 Minutes Completed 06/25/2024 04283 Therapeutic Procedure, Each 15 Minutes Completed 06/24/2024 77110 Neuromuscular Reeducation, E ach 15 Minutes Completed 06/24/2024 81165 Therapeutic Procedure, Each 15 Minutes Completed 06/21/2024 87811 Neuromuscular Reeducation, E ach 15 Minutes Completed 06/21/2024 87003 Therapeutic Procedure, Each 15 Minutes Completed 06/19/2024 G8417 Calculated BMI A osei Upper Parameter And Follow Up Plan Documentd Completed 06/19/2024 59689 Therapeutic Procedure, Each 15 Minutes Completed 06/19/2024 65452 Neuromuscular Reeducation, E ach 15 Minutes Completed 06/19/2024 54923 Therapeutic Activities Direc t, Each 15 Minutes Completed 06/17/2024 G8417 Calculated BMI A osei Upper Parameter And Follow Up Plan Documentd Completed 06/17/2024 45402 Therapeutic Activities Direc t, Each 15 Minutes Completed 06/17/2024 82036 Physical Therapy Eval Low Co mplexity Completed 06/17/2024 50223 Neuromuscular Reeducation, E ach 15 Minutes Completed 06/17/2024 04457 Therapeutic Procedure, Each 15 Minutes Completed 02/13/2018 58215 Post-Op Follow-Up Visit Comp leted 01/30/2018 54657 Post-Op Follow-Up Visit Comp leted 01/02/2018 30232 Post-Op Follow-Up Visit Comp leted 12/25/2017 18322 FX Metacarpal Open TX W/Wo F ixation Completed 12/25/2017 77998 Tenolysis Flexor/Extensor Te ndon Forearm/Wrist Completed 12/22/2017 [...] Contusion of lef t knee, subsequent encounter tSan Dillic, DPT 07/15/2024 Z68.35 Body mass index [...] collateral ligament of right knee, subsequent encounter nAish Eidcaridader DPT 07/05/2024 M25.561 Pain in right [...]
--- OUTSIDE RECORDS SUMMARY | 2025-04-04 13:41 | XMS_ITS | Clinical Summary ---
Author Organization [facility] Address [address] [place] [address] Phone Care Team Providers Care Traffic And Transport Planner Name Role Phone Alfonzo Aly Cristina RODRIGUEZ Primary Care Provider Social History Tobacco Use Types Packs/Day Years [...] 12/16/2017 INFLUENZA VACCINE (#1) 2025 COVID-19 VACCINE (1 - 2024-2 6 season) 2025 HEPATITIS A VACCINES Aged Out [...] WELLFLEET CIGNA WELLFLEET CIGNA WELLFLEET Care Teams Traffic And Transport Planner Relationship Specialty Start Date End Date Alfonzo Aly DO [address] [place] [address] PCP - General Family Medicine 03/06/24 Additional Source Comments The information contained in this document represents components of the legal health record. It is not the complete legal health record.[facility]
--- OUTSIDE RECORDS SUMMARY | 2025-04-04 13:41 | XMS_ITS | Encounter Summary ---
Author Organization [facility] Address [address] [place], [place] [address] Phone Care Team Providers Care Green Belt Name Role Phone Alfonzo Aly DO Primary Care Provider [phone] Encounter Details Date Type Department Care Team (Late st Contact Info) Description 03/05/2024 Procedure Pass [address] [place] [address] Social History Tobacco Use Types Packs/Day Years [...] on filedocumented in this encounter Care Teams Green Belt Relationship Specialty Start Date End Date Alfonzo Aly DO [address] [place], [place] [address] [place] [address] PCP - General Family Medicine 03/06/24 documented as of this encounter Additional Source Comments The information contained in this document represents components of the legal health record. It is not the complete legal health record.[facility]
== END 2025-04-04 13:17 | disposition home or self-care (01) ==
LOC: HO.HOS 13:14
PROVIDERS: Visit Provider Orthopaedic Surgery
DX: M23.8X9 Other internal derangements of unspecified knee (principal); M25.461 Effusion, right knee
CPT/HCPCS: 99213

== ENCOUNTER → 2025-04-04 13:14 | Outpatient (BNVA) | payer OTHER, SELFPAY | PROVIDERS: Visit Provider Orthopaedic Surgery | DX: M25.461 Effusion, right knee (principal) | CPT/HCPCS: 20600; J1885 ==

== ENCOUNTER 2025-04-07 15:28 | Outpatient (AMB) | payer OTHER, SELFPAY ==
--- NOTE | 2025-04-07 15:29 | A.OFFVIS_ITS ---
Intake Visit Reasons: Follow Up Job Development Specialist Required: No Allergies No Known Allergies Allergy (Verified 12/19/24 14:53) HPI HPI Follow Up: Details: Murray reports swelling after last game. Anterolateral knee pain. No new injury. Physical Exam Extrem Other: 1+ effusion TTP medial joint line ( baseline) TTP lateral retropatellar ( baseline) Office Procedures Joint Inj/Aspir; Non-Pain Clin Joint Injection/Drain Details: Aspirated 75 ml serosanguinous fluid. Injected 3 mL 1% lidocaine and 3 site was prepped using aseptic technique. Patient tolerated the procedure well. Shoulders, Hips, Knees, Knee Large Joint Injection : Right Knee Coding Procedure code (CPT) selection complete Assessment & Plan Assessment & Plan (1) MCL deficiency, knee: Code(s): M23.8X9 - Other internal derangements of unspecified knee Category: Medical Plan: Aspirated right knee. Likely iatrogenic blood. Ice and compression. NSAIDs and resume activity as tolerated. Coding Diagnoses MCL deficiency, knee M23.8X9 CPT Codes Shoulders, Hips, Knees, - Knee Large Joint Injection : Right Knee ([id number])
--- OUTSIDE RECORDS SUMMARY | 2025-04-07 17:52 | XMS_ITS | Encounter Summary ---
Author Organization [facility] Address [address] [place], [place] [address] Phone Care Team Providers Care Operations Support Analyst Name Role Phone Alfonzo Aly DO Primary Care Provider [phone] Encounter Details Date Type Department Care Team (Late st Contact Info) Description 03/05/2024 Procedure Pass [address] [place] [address] Social History Tobacco Use Types Packs/Day Years [...] on filedocumented in this encounter Care Teams Operations Support Analyst Relationship Specialty Start Date End Date Alfonzo Aly DO [address] [place], [place] [address] [place] [address] PCP - General Family Medicine 03/06/24 documented as of this encounter Additional Source Comments The information contained in this document represents components of the legal health record. It is not the complete legal health record.[facility]
--- OUTSIDE RECORDS SUMMARY | 2025-04-07 17:52 | XMS_ITS | Clinical Summary ---
Author Organization [facility] Address [address] [place] [address] Phone Care Team Providers Care Manager Military Name Role Phone Mann Nugent MD Primary Care Provider [phone] Allergies No known active allergies Medications No [...] Treatment Not on file Insurance GITA GARCIA [facility] [facility] [place] [id number] Care Teams Manager Military Relationship Specialty Start Date End Date Mann Nugent MD [address] [facility] [address] [place] [phone] PCP - General 06/04/09
--- OUTSIDE RECORDS SUMMARY | 2025-04-07 17:52 | XMS_ITS | Clinical Summary ---
Author Organization [facility] Address [address] [facility] [place] [address] Care Team Providers Care Security Project Manager Name Role Phone Unavailable Primary Care Provider [...]
--- OUTSIDE RECORDS SUMMARY | 2025-04-07 17:52 | XMS_ITS | Encounter Summary ---
Author Organization [facility] Address [address] [place] [address] Phone Care Team Providers Care Yeast Washer Name Role Phone Alfonzo Aly DO Primary Care Provider [phone] Reason for Referral * MRI/CAT Scan - Closed Specialty Diagnoses / Procedures Referred By Juan german Referred To Contact Radiology Diagnoses Right knee pain, unspecified chronicity Procedures MRI Knee (Right) Alfonzo Aly DO [address] [place] [address] Phone: tel: fax: [email or web address] Referral ID Status Reason Start Date Expiration Date Visits Re quested Visits Authorized [id number] Closed 03/05/2024 03/05/2025 1 1 Encounter Details Date Type Department Care Team (Late st Contact Info) Description 03/05/2024 Transcribe Orders Virtual Department [address] [place] [address] Alfonzo Aly DO [address] [place] [address] [email or web address] Right knee pain, unspecified chronicity (Primary Dx) [...] 03/18/2024 8:17 AM EDT Addenda Addendum by rCisto Levy MD on 03/27/2024 9:31 AM EDT [...] chronicity documented in this encounter Care Teams Yeast Washer Relationship Specialty Start Date End Date Alfonzo Aly DO [address] [place] [address] [email or web address] PCP - General Family Medicine 03/06/24 documented as of this encounter Additional Source Comments The information contained in this document represents components of the legal health record. It is not the complete legal health record.[facility]
--- OUTSIDE RECORDS SUMMARY | 2025-04-07 17:52 | XMS_ITS | Clinical Summary ---
Author Organization [facility] Address [address] [place] [address] Phone Care Team Providers Care Digital Media Director Name Role Phone Alfonzo Aly Cristina RODRIGUEZ Primary Care Provider [phone] Social History Tobacco Use Types Packs/Day Years [...] WELLFLEET CIGNA WELLFLEET CIGNA WELLFLEET Care Teams Digital Media Director Relationship Specialty Start Date End Date Alfonzo Aly DO [address] [place] [address] PCP - General Family Medicine 03/06/24 Additional Source Comments The information contained in this document represents components of the legal health record. It is not the complete legal health record.[facility]
== END 2025-04-07 15:29 | disposition home or self-care (01) ==
LOC: HO.HOS 15:28
PROVIDERS: Visit Provider Orthopaedic Surgery
DX: R22.41 Localized swelling, mass and lump, right lower limb (principal)
CPT/HCPCS: 20610

== ENCOUNTER → 2025-04-07 15:28 | Outpatient (BNVA) | payer OTHER, SELFPAY | PROVIDERS: Visit Provider Orthopaedic Surgery | DX: M25.461 Effusion, right knee (principal); M23.8X1 Other internal derangements of right knee | CPT/HCPCS: 20610; J2003 ==

== ENCOUNTER 2025-04-16 14:59 | Outpatient (AMB) | payer OTHER, SELFPAY ==
--- NOTE | 2025-04-16 15:05 | A.OFFVIS_ITS ---
Vital Signs 04/16/25 15:08 Height 6 ft 7 in Weight 319 lb BMI 35.9 Intake Visit Reasons: Right Knee Euflexxa #1 Allergies amoxicillin (From Augmentin) Allergy (Verified 04/16/25 15:07) Hives clavulanic acid (From Augmentin) Allergy (Verified 04/16/25 15:07) Hives HPI HPI Right Knee Euflexxa #1: Details: Here for right knee Euflexxa. Discussed and agreed to inject 15 mg Toradol as well. PFSH Surgical History (Updated 04/16/25 @ 15:06 by Sangeeta Castle CMA) Hx of hand surgery Social History (Updated 04/16/25 @ 15:07 by Sangeeta Castle CMA) Current occupational status: student Current occupation: [employer] Physical Exam Exam Exam: Ujrj-uq-onncogzk effusion right knee. Skin clean dry and intact Vital Signs: BMI result Body Mass Index 35.9 Office Procedures Joint Inj/Aspir; Non-Pain Clin Joint Injection/Drain Details: Injected Euflexxa and 15 mg ketorolac. Site was prepped using aseptic technique. Patient tolerated the procedure well. Approach Used: anterolateral Shoulders, Hips, Knees, Knee Large Joint Injection : Right Knee Coding Procedure code (CPT) selection complete Assessment & Plan Assessment & Plan (1) Knee effusion, right: Code(s): M25.461 - Effusion, right knee Category: Medical Plan: Euflexxa 1/3 and 15mg ketorolac injected into right knee. Tolerated procedure well. One week for repeat Euflexxa (2) Patellar contusion: Code(s): S80.00XA - Contusion of unspecified knee, initial encounter Category: Medical Plan: Coding Level of Care Code Est Pt Level 2 (62352) Diagnoses Knee effusion, right M25.461 Patellar contusion S80.00XA CPT Codes Shoulders, Hips, Knees, - Knee Large Joint Injection 12805: Right Knee ([id number])
[2025-04-16 15:08] VITALS: BMI 35.9
--- OUTSIDE RECORDS SUMMARY | 2025-04-16 18:42 | XMS_ITS | Clinical Summary ---
Author Organization [facility] Address [address] [place] [address] Phone Care Team Providers Care Lead Handler Name Role Phone Mann Nugent MD Primary Care Provider [phone] Allergies No known active allergies Medications No [...] Treatment Not on file Insurance GITA GARCIA [employer] [facility] GITA [id number] Care Teams Lead Handler Relationship Specialty Start Date End Date Mann Nugent MD [address] [facility] [address] [place] [phone] PCP - General 06/04/09
--- OUTSIDE RECORDS SUMMARY | 2025-04-16 18:42 | XMS_ITS | Encounter Summary ---
Author Organization [facility] Address [address] [place] [address] Phone Care Team Providers Care Manager Development Name Role Phone Alfonzo Aly DO Primary Care Provider [phone] Reason for Referral * MRI/CAT Scan - Closed Specialty Diagnoses / Procedures Referred By Juan german Referred To Contact Radiology Diagnoses Right knee pain, unspecified chronicity Procedures MRI Knee (Right) Alfonzo Aly DO [address] [place] [address] Phone: tel: fax: mailto:[email or web address] Referral ID Status Reason Start Date Expiration Date Visits Re quested Visits Authorized [id number] Closed 03/05/2024 03/05/2025 1 1 Encounter Details Date Type Department Care Team (Late st Contact Info) Description 03/05/2024 Transcribe Orders Virtual Department [address] [place] [address] Alfonzo Aly DO [address] [place] [address] [email or web address] Right knee pain, unspecified chronicity (Primary Dx) [...] chronicity documented in this encounter Care Teams Manager Development Relationship Specialty Start Date End Date Alfonzo Aly DO [address] [place] [address] [email or web address] PCP - General Family Medicine 03/06/24 documented as of this encounter Additional Source Comments The information contained in this document represents components of the legal health record. It is not the complete legal health record.[facility]
--- OUTSIDE RECORDS SUMMARY | 2025-04-16 18:42 | XMS_ITS | Clinical Summary ---
Author Organization [facility] Address [address] [place] [address] Phone Care Team Providers Care 911 Telecommunicator Name Role Phone Alfonzo Aly Cristina RODRIGUEZ Primary Care Provider [phone] Social History Tobacco Use Types Packs/Day Years [...] WELLFLEET CIGNA WELLFLEET CIGNA WELLFLEET Care Teams 911 Telecommunicator Relationship Specialty Start Date End Date Alfonzo Aly DO [address] [place] [address] PCP - General Family Medicine 03/06/24 Additional Source Comments The information contained in this document represents components of the legal health record. It is not the complete legal health record.[facility]
--- OUTSIDE RECORDS SUMMARY | 2025-04-16 18:42 | XMS_ITS | Continuity of Care Document ---
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 Allergic rhinitis Trevor Roy M.S., AUTOMOTIVE TIRE TESTING SUPERVISOR-C Onset: 12/19/2013 Allergic rhinitis Trevor Roy M.S., AUTOMOTIVE TIRE TESTING SUPERVISOR-C Onset: 12/19/2013 Allergic rhinitis caused by animals Trevor Roy M.S., AUTOMOTIVE TIRE TESTING SUPERVISOR-C Onset: 12/19/2013 Allergic rhinitis caused by pollen Lynnette Bey, AUTOMOTIVE TIRE TESTING SUPERVISOR-C Onset: 12/19/2013 Allergic asthma without status asthmaticus Trevor Roy M.S., AUTOMOTIVE TIRE TESTING SUPERVISOR-C Onset: 12/19/2013 Exercise-induced asthma Trevor Roy M.S., AUTOMOTIVE TIRE TESTING SUPERVISOR-C O nset: 11/29/2013 Difficulty breathing Trevor Roy M.S., AUTOMOTIVE TIRE TESTING SUPERVISOR-C Onse t: 11/29/2013 Posterior rhinorrhea Trevor Roy M.S., AUTOMOTIVE TIRE TESTING SUPERVISOR-C Onse t: 11/29/2013 Chronic rhinitis Trevor Roy M.S., AUTOMOTIVE TIRE TESTING SUPERVISOR-C Onset: 0 11/29/2013 Allergies and adverse reactions Active Allergies Criticality Reaction Severity Comments Date Augmentin Unable to assess criticality Urticaria 11/29/2013 Montelukast Unable to assess criticality Mood change Moderate 02/14/2014 Inactive Allergies No Known Drug Allergies 0 11/29/2013 Medications Active Medications SIG Qnty Indications Ordering Provider Date Besp00obs/Act Aerosol 2 puffs twice daily; rinse mouth after use 1units 493.00 Vitor Parekh M.D. 12/19/2013 Cybrhfdtav36ah Tablets 1 tab by mouth every day as needed for seasonal allergies 30tabs 493.00 Trevor Roy M.S., AUTOMOTIVE TIRE TESTING SUPERVISOR-C 12/19/2013 Sinus Rinse Bottle KitPacket rinse sinus twice daily; may buy odgl-epm-asijlve sinus rinse 1units 472.0 Trevor Roy M.S., AUTOMOTIVE TIRE TESTING SUPERVISOR-C 11/29/2013 Ftcbktn31oor/Act Suspension 1 spray each nostril twice daily 1units 472.0 Trevor Roy M.S., AUTOMOTIVE TIRE TESTING SUPERVISOR-C 11/29/2013 784.91 493.00 Ventolin OGK251(90Base) mcg/Act Aerosol 2 puffs every 4 hours as needed; 30min prior to exercise 1units 472.0 Trevor Roy M.S., AUTOMOTIVE TIRE TESTING SUPERVISOR-C 11/29/2013 Vital Signs Date Vital Result Comment [...]
--- OUTSIDE RECORDS SUMMARY | 2025-04-16 18:42 | XMS_ITS | Encounter Summary ---
Author Organization [facility] Address [address] [place], [place] [address] Phone Care Team Providers Care Stave Mill Hand Name Role Phone Alfonzo Aly DO Primary Care Provider Encounter Details Date Type Department Care Team (Late st Contact Info) Description 03/05/2024 Procedure Pass [address] [place] [address] Social History Tobacco Use Types Packs/Day Years [...] on filedocumented in this encounter Care Teams Stave Mill Hand Relationship Specialty Start Date End Date Alfonzo Aly DO [address] [place], [place] [address] [place] [address] PCP - General Family Medicine 03/06/24 documented as of this encounter Additional Source Comments The information contained in this document represents components of the legal health record. It is not the complete legal health record.[facility]
--- OUTSIDE RECORDS SUMMARY | 2025-04-16 18:42 | XMS_ITS | Clinical Summary ---
Author Organization [facility] Address [address] [facility] [place] [address] Care Team Providers Care Beaming Inspector Name Role Phone Unavailable Primary Care Provider [...]
== END 2025-04-16 16:05 | disposition home or self-care (01) ==
LOC: HO.HOS 15:00
PROVIDERS: Visit Provider Orthopaedic Surgery
DX: M25.461 Effusion, right knee (principal); S80.00XA Contusion of unspecified knee, initial encounter
CPT/HCPCS: 20610

== ENCOUNTER → 2025-04-16 14:59 | Outpatient (BNVA) | payer OTHER, SELFPAY | PROVIDERS: Visit Provider Orthopaedic Surgery | DX: M25.461 Effusion, right knee (principal); S80.00XA Contusion of unspecified knee, initial encounter | CPT/HCPCS: 20610; J1885; J7323 ==

== ENCOUNTER 2025-04-23 14:06 | Outpatient (AMB) | payer OTHER, SELFPAY ==
--- OUTSIDE RECORDS SUMMARY | 2025-04-23 20:19 | XMS_ITS | Encounter Summary ---
Author Organization [facility] Address [address] [place], [place] [address] Phone Care Team Providers Care Air/Ocean Export Clerk Name Role Phone Alfonzo Aly DO Primary Care Provider [phone] Encounter Details Date Type Department Care Team (Late st Contact Info) Description 03/05/2024 Procedure Pass [address] [place] [address] Social History Tobacco Use Types Packs/Day Years [...] on filedocumented in this encounter Care Teams Air/Ocean Export Clerk Relationship Specialty Start Date End Date Alfonzo Aly DO [address] [place], [place] [address] [place] [address] PCP - General Family Medicine 03/06/24 documented as of this encounter Additional Source Comments The information contained in this document represents components of the legal health record. It is not the complete legal health record.[facility]
--- OUTSIDE RECORDS SUMMARY | 2025-04-23 20:19 | XMS_ITS | Encounter Summary ---
Author Organization [facility] Address [address] [place] [address] Phone Care Team Providers Care Certified Composites Technician Name Role Phone Alfonzo Aly DO Primary Care Provider [phone] Reason for Referral * MRI/CAT Scan - Closed Specialty Diagnoses / Procedures Referred By Juan german Referred To Contact Radiology Diagnoses Right knee pain, unspecified chronicity Procedures MRI Knee (Right) Alfonzo Aly DO [address] [place] [address] Phone: tel: fax: [email or web address] Referral ID Status Reason Start Date Expiration Date Visits Re quested Visits Authorized [id number] Closed 03/05/2024 03/05/2025 1 1 Encounter Details Date Type Department Care Team (Late st Contact Info) Description 03/05/2024 Transcribe Orders Virtual Department [address] [place] [address] Alfonzo Aly DO [address] [place] [address] [email or web address] Right knee pain, unspecified chronicity (Primary Dx) [...] chronicity documented in this encounter Care Teams Certified Composites Technician Relationship Specialty Start Date End Date Alfonzo Aly DO [address] [place] [address] [email or web address] PCP - General Family Medicine 03/06/24 documented as of this encounter Additional Source Comments The information contained in this document represents components of the legal health record. It is not the complete legal health record.[facility]
--- OUTSIDE RECORDS SUMMARY | 2025-04-23 20:19 | XMS_ITS | Clinical Summary ---
Author Organization [facility] Address [address] [place] [address] Phone Care Team Providers Care Cashier Manager Name Role Phone Alfonzo Aly Cristina RODRIGUEZ Primary Care Provider [phone] Social History Tobacco Use Types Packs/Day Years [...] WELLFLEET CIGNA WELLFLEET CIGNA WELLFLEET Care Teams Cashier Manager Relationship Specialty Start Date End Date Alfonzo Aly DO [address] [place] [address] PCP - General Family Medicine 03/06/24 Additional Source Comments The information contained in this document represents components of the legal health record. It is not the complete legal health record.[facility]
--- OUTSIDE RECORDS SUMMARY | 2025-04-23 20:19 | XMS_ITS | Continuity of Care Document ---
Author Organization 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 Allergic rhinitis Trevor Roy M.S., GLASS WASHER-C Onset: 12/19/2013 Allergic rhinitis Trevor Roy M.S., GLASS WASHER-C Onset: 12/19/2013 Allergic rhinitis caused by animals Trevor Roy M.S., GLASS WASHER-C Onset: 12/19/2013 Allergic rhinitis caused by pollen Lynnette Bey, GLASS WASHER-C Onset: 12/19/2013 Allergic asthma without status asthmaticus Trevor Roy M.S., GLASS WASHER-C Onset: 12/19/2013 Exercise-induced asthma Trevor Roy M.S., GLASS WASHER-C O nset: 11/29/2013 Difficulty breathing Trevor Roy M.S., GLASS WASHER-C Onse t: 11/29/2013 Posterior rhinorrhea Trevor Roy M.S., GLASS WASHER-C Onse t: 11/29/2013 Chronic rhinitis Trevor Roy M.S., GLASS WASHER-C Onset: 0 11/29/2013 Allergies and adverse reactions Active Allergies Criticality Reaction Severity Comments Date Augmentin Unable to assess criticality Urticaria 11/29/2013 Montelukast Unable to assess criticality Mood change Moderate 02/14/2014 Inactive Allergies No Known Drug Allergies 0 11/29/2013 Medications Active Medications SIG Qnty Indications Ordering Provider Date Yaug55pip/Act Aerosol 2 puffs twice daily; rinse mouth after use 1units 493.00 Vitor Parekh M.D. 12/19/2013 Ztdnrixbsr08hr Tablets 1 tab by mouth every day as needed for seasonal allergies 30tabs 493.00 Trevor Roy M.S., GLASS WASHER-C 12/19/2013 Sinus Rinse Bottle KitPacket rinse sinus twice daily; may buy qojv-rde-yzwjesu sinus rinse 1units 472.0 Trevor Roy M.S., GLASS WASHER-C 11/29/2013 Tnswsdd64ywy/Act Suspension 1 spray each nostril twice daily 1units 472.0 Trevor Roy M.S., GLASS WASHER-C 11/29/2013 784.91 493.00 Ventolin VKF832(90Base) mcg/Act Aerosol 2 puffs every 4 hours as needed; 30min prior to exercise 1units 472.0 Trevor Roy M.S., GLASS WASHER-C 11/29/2013 Vital Signs Date Vital Result Comment [...]
--- OUTSIDE RECORDS SUMMARY | 2025-04-23 20:19 | XMS_ITS | Clinical Summary ---
Author Organization [facility] Address [address] [place] [address] Phone Care Team Providers Care Instructor Wastewater Treatment Plant Name Role Phone Mann Nugent MD Primary Care Provider [phone] Allergies No known active allergies Medications No [...] Plan of Treatment Not on file Insurance GIAT GARCIA Em[facility] GITA [id number] Care Teams Instructor Wastewater Treatment Plant Relationship Specialty Start Date End Date Mann Nugent MD [address] [facility] [address] [place] [phone] PCP - General 06/04/09
--- OUTSIDE RECORDS SUMMARY | 2025-04-23 20:19 | XMS_ITS | Clinical Summary ---
Author Organization [facility] Address [address] [facility] [place] [address] Care Team Providers Care Top Cutter Name Role Phone Unavailable Primary Care Provider [...]
--- OUTSIDE RECORDS SUMMARY | 2025-04-23 20:19 | XMS_ITS | Continuity of Care Document ---
Author Organization [facility] luzmaria Soriano Address [address] [place] [address] Phone [phone] Care Team Providers Care Guard Range Name Role Phone Alfonzo Aly DO Care Team Information Cane Stripper Unavailable JASE EID DPT Care Team Information Re ceiver Unavailable Mann Nugent MD Primary Care Physician Unavailab le Social History Type Date Description Comments Sex Male Sex Unknown Medications Active Medications SIG Qnty Indications Ordering Provider Date Knoxtdtbairs186kv Tablets Unkn own Vital Signs Date Vital Result Comment 06/17/2024 11:07am BP Systolic 171 mmHg BP Diastolic 111 mmHg Heart Rate 117 /min Weight 315.00 lb Weight 142.884 kg Height 79 inches 6'7 Height in cm's 200.7 cm BMI (Body Mass Index) 35.5 kg/m2 [place] Body Weight 220 lb 01/30/2018 9:59am Height 79 inches 6'7 Height in cm's 200.7 cm Height Percentile 97 % [place] Body Weight 220 lb Procedures Date Code Description Status 07/25/2024 59541 Therapeutic Activities Direc t, Each 15 Minutes Completed 07/25/2024 72895 Re-Eval Of PT Es tablished Plan Of Care 20Mins Face To Face PT/Fam Completed 07/25/2024 05286 Neuromuscular Reeducation, E ach 15 Minutes Completed 07/25/2024 88161 Therapeutic Procedure, Each 15 Minutes Completed 07/25/2024 [facility] [employer] [facility] mpleted 07/23/2024 27231 Therapeutic Activities Direc t, Each 15 Minutes Completed 07/23/2024 25950 Neuromuscular Reeducation, E ach 15 Minutes Completed 07/23/2024 55068 Therapeutic Procedure, Each 15 Minutes Completed 07/22/2024 22338 Therapeutic Activities Direc t, Each 15 Minutes Completed 07/22/2024 58418 Therapeutic Procedure, Each 15 Minutes Completed 07/22/2024 52652 Neuromuscular Reeducation, E ach 15 Minutes Completed 07/19/2024 38306 Therapeutic Activities Direc t, Each 15 Minutes Completed 07/19/2024 91586 Neuromuscular Reeducation, E ach 15 Minutes Completed 07/19/2024 55603 Therapeutic Procedure, Each 15 Minutes Completed 07/19/2024 90301 Range Of Motion Measurements Each Extremity Or Trunk Section Completed 07/16/2024 96686 Neuromuscular Reeducation, E ach 15 Minutes Completed 07/16/2024 27437 Therapeutic Procedure, Each 15 Minutes Completed 07/16/2024 69293 Therapeutic Activities Direc t, Each 15 Minutes Completed 07/15/2024 18395 Therapeutic Activities Direc t, Each 15 Minutes Completed 07/15/2024 07280 Neuromuscular Reeducation, E ach 15 Minutes Completed 07/15/2024 03311 Therapeutic Procedure, Each 15 Minutes Completed 07/12/2024 87078 Therapeutic Activities Direc t, Each 15 Minutes Completed 07/12/2024 54890 Neuromuscular Reeducation, E ach 15 Minutes Completed 07/12/2024 17285 Therapeutic Procedure, Each 15 Minutes Completed 07/09/2024 63574 Therapeutic Activities Direc t, Each 15 Minutes Completed 07/09/2024 40468 Neuromuscular Reeducation, E ach 15 Minutes Completed 07/09/2024 11726 Therapeutic Procedure, Each 15 Minutes Completed 07/08/2024 24577 Therapeutic Activities Direc t, Each 15 Minutes Completed 07/08/2024 22248 Neuromuscular Reeducation, E ach 15 Minutes Completed 07/08/2024 37501 Therapeutic Procedure, Each 15 Minutes Completed 07/05/2024 23531 Therapeutic Activities Direc t, Each 15 Minutes Completed 07/05/2024 92417 Therapeutic Procedure, Each 15 Minutes Completed 07/05/2024 11509 Neuromuscular Reeducation, E ach 15 Minutes Completed 07/01/2024 91185 Therapeutic Activities Direc t, Each 15 Minutes Completed 07/01/2024 88891 Neuromuscular Reeducation, E ach 15 Minutes Completed 07/01/2024 28428 Therapeutic Procedure, Each 15 Minutes Completed 06/28/2024 98258 Therapeutic Activities Direc t, Each 15 Minutes Completed 06/28/2024 69383 Neuromuscular Reeducation, E ach 15 Minutes Completed 06/28/2024 44802 Therapeutic Procedure, Each 15 Minutes Completed 06/25/2024 23330 Therapeutic Activities Direc t, Each 15 Minutes Completed 06/25/2024 26027 Neuromuscular Reeducation, E ach 15 Minutes Completed 06/25/2024 94519 Therapeutic Procedure, Each 15 Minutes Completed 06/24/2024 31877 Neuromuscular Reeducation, E ach 15 Minutes Completed 06/24/2024 38815 Therapeutic Procedure, Each 15 Minutes Completed 06/21/2024 65184 Neuromuscular Reeducation, E ach 15 Minutes Completed 06/21/2024 24964 Therapeutic Procedure, Each 15 Minutes Completed 06/19/2024 G8417 Calculated BMI A osei Upper Parameter And Follow Up Plan Documentd Completed 06/19/2024 24380 Therapeutic Procedure, Each 15 Minutes Completed 06/19/2024 87334 Neuromuscular Reeducation, E ach 15 Minutes Completed 06/19/2024 02042 Therapeutic Activities Direc t, Each 15 Minutes Completed 06/17/2024 G8417 Calculated BMI A osei Upper Parameter And Follow Up Plan Documentd Completed 06/17/2024 35635 Therapeutic Activities Direc t, Each 15 Minutes Completed 06/17/2024 02094 Physical Therapy Eval Low Co mplexity Completed 06/17/2024 01136 Neuromuscular Reeducation, E ach 15 Minutes Completed 06/17/2024 73656 Therapeutic Procedure, Each 15 Minutes Completed 02/13/2018 25779 Post-Op Follow-Up Visit Comp leted 01/30/2018 05538 Post-Op Follow-Up Visit Comp leted 01/02/2018 73049 Post-Op Follow-Up Visit Comp leted 12/25/2017 74542 FX Metacarpal Open TX W/Wo F ixation Completed 12/25/2017 87769 Tenolysis Flexor/Extensor Te ndon Forearm/Wrist Completed 12/22/2017 [...] in wa lking, not elsewhere classified Jase Edi DPT 07/05/2024 S80.02xD Contusion of lef t [...]
--- NOTE | 2025-04-24 10:06 | MHC.OFFVIS ---
Intake Visit Reasons: Euflexxa #2 Allergies amoxicillin (From Augmentin) Allergy (Verified 04/16/25 15:07) Hives clavulanic acid (From Augmentin) Allergy (Verified 04/16/25 15:07) Hives HPI HPI Euflexxa #2: Details: Here for Euflexxa 2/3. Feels well compared to last week but still with mild swelling. PFSH Surgical History (Updated 04/16/25 @ 15:06 by Sangeeta Castle CMA) Hx of hand surgery Social History (Updated 04/16/25 @ 15:07 by Sangeeta Castle CMA) Current occupational status: student Current occupation: [employer] Physical Exam Exam Exam: Skin clean dry and intact. Office Procedures Joint Inj/Aspir; Non-Pain Clin Joint Injection/Drain Details: Injected Euflexxa. Site was prepped using aseptic technique. Patient tolerated the procedure well. Approach Used: anterolateral Shoulders, Hips, Knees, Knee Large Joint Injection 23547: Right Knee Coding Procedure code (CPT) selection complete Assessment & Plan Assessment & Plan (1) Patellar contusion: Code(s): S80.00XA - Contusion of unspecified knee, initial encounter Category: Medical Plan: Injected right knee with Euflexxa 2/3. Tolerated procedure well. Follow up 1 week (2) Knee effusion, right: Code(s): M25.461 - Effusion, right knee Category: Medical Plan: Coding Level of Care Code Est Pt Level 2 (66209) Diagnoses Patellar contusion S80.00XA Knee effusion, right M25.461 CPT Codes Shoulders, Hips, Knees, - Knee Large Joint Injection 43209: Right Knee ([id number])
== END 2025-04-23 15:43 | disposition home or self-care (01) ==
LOC: HO.HOS 14:06
PROVIDERS: Visit Provider Orthopaedic Surgery
DX: S80.00XA Contusion of unspecified knee, initial encounter (principal); M25.461 Effusion, right knee
CPT/HCPCS: 20610

== ENCOUNTER → 2025-04-23 14:06 | Outpatient (BNVA) | payer OTHER, SELFPAY | PROVIDERS: Visit Provider Orthopaedic Surgery | DX: M25.461 Effusion, right knee (principal); S80.01XD Contusion of right knee, subsequent encounter | CPT/HCPCS: 20610; J7323 ==

== ENCOUNTER 2025-04-28 11:02 | Outpatient (AMB) | payer OTHER, SELFPAY ==
--- NOTE | 2025-04-28 11:03 | A.OFFVIS_ITS ---
Intake Visit Reasons: Follow Up Area Captain Required: No Allergies amoxicillin (From Augmentin) Allergy (Verified 04/16/25 15:07) Hives clavulanic acid (From Augmentin) Allergy (Verified 04/16/25 15:07) Hives HPI HPI Follow Up: Details: Left knee injury this past weekend. Feels like he hyperextended his knee while blocking and was unable to finish game. He is walking now and feels better now but still sore. PFSH Surgical History (Updated 04/16/25 @ 15:06 by Sangeeta Castle CMA) Hx of hand surgery Social History (Updated 04/16/25 @ 15:07 by Sangeeta Castle CMA) Current occupational status: student Current occupation: [employer] Physical Exam Exam Exam: Left knee with no effusion. There is ttp along tibial tubercle and patellar attachment of patellar tendon. 5/5 strength with knee extension. Neg post/ant drawer. Results Reviewed Results Reviewed: CT reveiwed and infrapatellar edema with no fracture, Assessment & Plan Assessment & Plan (1) Avulsion fracture of tibial tuberosity: Code(s): S82.153A - Displaced fracture of unspecified tibial tuberosity, initial encounter for closed fracture Category: Medical Plan: MR ordered to assess left knee. Tender to palpation along course of patellar tendon with no obvious bony injury. Orders: Orders CT knee LT wo IV con 04/28/25 S82.153A - Displaced fracture of unspecified tib ial tuberosity, initial encounter for closed fracture MR knee LT wo con 04/29/25 S82.153A - Displaced fracture of unspecified tibial tuberosity, initial encounter for closed fracture Coding Level of Care Code Est Pt Level 3 (60112) Diagnoses Avulsion fracture of tibial tuberosity S82.153A
--- OUTSIDE RECORDS SUMMARY | 2025-04-28 13:52 | XMS_ITS | Clinical Summary ---
Author Organization [facility] Address [address] [place] [address] Phone Care Team Providers Care Manager Secondary Name Role Phone Alfonzo Aly Cristina RODRIGUEZ Primary Care Provider [phone] Social History Tobacco Use Types Packs/Day Years [...] WELLFLEET CIGNA WELLFLEET CIGNA WELLFLEET Care Teams Manager Secondary Relationship Specialty Start Date End Date Alfonzo Aly DO [address] [place] [id number] PCP - General Family Medicine 03/06/24 Additional Source Comments The information contained in this document represents components of the legal health record. It is not the complete legal health record.[facility]
--- OUTSIDE RECORDS SUMMARY | 2025-04-28 13:53 | XMS_ITS | Encounter Summary ---
Author Organization [facility] Address [address] [place] [address] Phone Care Team Providers Care Tube Maker Name Role Phone Alfonzo Aly DO Primary Care Provider [phone] Reason for Referral * MRI/CAT Scan - Closed Specialty Diagnoses / Procedures Referred By Juan german Referred To Contact Radiology Diagnoses Right knee pain, unspecified chronicity Procedures MRI Knee (Right) Alfonzo Aly DO [address] [place] [address] Phone: tel: fax: [email or web address] Referral ID Status Reason Start Date Expiration Date Visits Re quested Visits Authorized [id number] Closed 03/05/2024 03/05/2025 1 1 Encounter Details Date Type Department Care Team (Late st Contact Info) Description 03/05/2024 Transcribe Orders Virtual Department [address] [place] [address] Alfonzo Aly DO [address] [place] [address] [email or web address] Right knee pain, unspecified chronicity [...] chronicity documented in this encounter Care Teams Tube Maker Relationship Specialty Start Date End Date Alfonzo Aly DO [address] [place] [address] [email or web address] PCP - General Family Medicine 03/06/24 documented as of this encounter Additional Source Comments The information contained in this document represents components of the legal health record. It is not the complete legal health record.[facility]
--- OUTSIDE RECORDS SUMMARY | 2025-04-28 13:53 | XMS_ITS | Encounter Summary ---
Author Organization [facility] Address [address] [place], [place] [id number] Phone Care Team Providers Care Paper Bundler Name Role Phone Alfonzo Aly DO Primary Care Provider Encounter Details Date Type Department Care Team (Late st Contact Info) Description 03/05/2024 Procedure Pass [address] [place] [address] Social History Tobacco Use Types Packs/Day Years [...] on filedocumented in this encounter Care Teams Paper Bundler Relationship Specialty Start Date End Date Alfonzo Aly DO [address] [place], [place] [address] [place] [address] PCP - General Family Medicine 03/06/24 documented as of this encounter Additional Source Comments The information contained in this document represents components of the legal health record. It is not the complete legal health record.[facility]
--- OUTSIDE RECORDS SUMMARY | 2025-04-28 13:53 | XMS_ITS | Clinical Summary ---
Author Organization [facility] Address [address] [facility] [place] [address] Care Team Providers Care Broadcast Director Operations Name Role Phone Unavailable Primary Care Provider [...]
--- OUTSIDE RECORDS SUMMARY | 2025-04-28 13:53 | XMS_ITS | Clinical Summary ---
Author Organization [facility] Address [address] [place] [address] Phone Care Team Providers Care Telegraphic Typewriter Repairer Name Role Phone Mann Nugent MD Primary Care Provider [phone] Allergies No known active allergies Medications No [...] Treatment Not on file Insurance GITA GARCIA [employer] [facility] [place] [id number] Care Teams Telegraphic Typewriter Repairer Relationship Specialty Start Date End Date Mann Nugent MD [address] [facility] [address] [place] [phone] PCP - General 06/04/09
== END 2025-04-28 11:31 | disposition home or self-care (01) ==
LOC: HO.HOS 11:02
PROVIDERS: Visit Provider Orthopaedic Surgery
DX: S82.153A Displaced fracture of unspecified tibial tuberosity, initial encounter for closed fracture (principal)
CPT/HCPCS: 99213

== ENCOUNTER 2025-04-28 13:54 | Outpatient (REF) | payer OTHER, SELFPAY ==
--- NOTE | ~2025-04-28 | CT_ITS ---
EXAMINATION: CT KNEE WITHOUT CONTRAST, LEFT CLINICAL INFORMATION: S 82.153 A. Displaced fracture of unspecified tibial tuberosity COMPARISON: Correlated to MRI dated February 01, 2025. TECHNIQUE: Contiguous axial images through the left knee using 2 mm collimation with bone and soft tissue algorithm. Sagittal and coronal reformatted images acquired. This CT examination was performed using dose optimization techniques as appropriate, variously including the following: *Automated exposure control *Adjustment of mA and/or kV according to patient size (this includes techniques or standardized protocols for targeted exams where dose is matched to indication/reason for exam; i.e. extremities or head) *Use of iterative reconstruction technique DLP: 128 mGy centimeter. FINDINGS: No acute cortical disruption or gross malalignment. Mild sclerosis along the articular surface of the medial and to a lesser extent lateral tibial plateau. Small exostosis at the quadriceps tendon insertion. Trace of fluid in the suprapatellar bursa. No gross fluid collection in the popliteal fossa. No lytic or blastic lesions. Mild edema pattern in the prepatellar soft tissues. CT/CT knee LT wo IV con IMPRESSION: No acute compression fracture deformity in the tibial plateau. Small volume suprapatellar bursa joint effusion. Electronically signed by: Jake Burris MD 04/28/2025 02:28 PM EDT
--- OUTSIDE RECORDS SUMMARY | 2025-04-28 17:34 | XMS_ITS ---
Continuity of Care Document (CCD) Created on: April 28, 2025 Murray Brantley External Reference #: [id number] : 2000 Sex: Male Author Organization [facility] Address [address] [place] [address] Phone [phone] Care Team Providers Care Tong Carrier Name Role Phone Mann Nugent MD Care Team Information Commercial Real Estate Manager U MAIN Luis MD Care Team Information Commercial Real Estate Manager U Mann Morales MD Primary Care Physician Unavailab le Problems Active Problems Provider Date 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 Allergic rhinitis Trevor Roy M.S., ASSISTANT STATISTICIAN-C Onset: 12/19/2013 Allergic rhinitis Trevor Roy M.S., ASSISTANT STATISTICIAN-C Onset: 12/19/2013 Allergic rhinitis caused by animals Trevor Roy M.S., ASSISTANT STATISTICIAN-C Onset: 12/19/2013 Allergic rhinitis caused by pollen Lynnette Bey, ASSISTANT STATISTICIAN-C Onset: 12/19/2013 Allergic asthma without status asthmaticus Trevor Roy M.S., ASSISTANT STATISTICIAN-C Onset: 12/19/2013 Exercise-induced asthma Trevor Roy M.S., ASSISTANT STATISTICIAN-C O nset: 11/29/2013 Difficulty breathing Trevor Roy M.S., ASSISTANT STATISTICIAN-C Onse t: 11/29/2013 Posterior rhinorrhea Trevor Roy M.S., ASSISTANT STATISTICIAN-C Onse t: 11/29/2013 Chronic rhinitis Trevor Roy M.S., ASSISTANT STATISTICIAN-C Onset: 0 11/29/2013 Allergies and adverse reactions Active Allergies Criticality Reaction Severity Comments Date Augmentin Unable to assess criticality Urticaria 11/29/2013 Montelukast Unable to assess criticality Mood change Moderate 02/14/2014 Inactive Allergies No Known Drug Allergies 0 11/29/2013 Medications Active Medications SIG Qnty Indications Ordering Provider Date Znbc41wxq/Act Aerosol 2 puffs twice daily; rinse mouth after use 1units 493.00 Vitor Parekh M.D. 12/19/2013 Kmxzfvfanu57lu Tablets 1 tab by mouth every day as needed for seasonal allergies 30tabs 493.00 Trevor Roy M.S., ASSISTANT STATISTICIAN-C 12/19/2013 Sinus Rinse Bottle KitPacket rinse sinus twice daily; may buy offt-hgj-kbpaopj sinus rinse 1units 472.0 Trevor Roy M.S., ASSISTANT STATISTICIAN-C 11/29/2013 Yykezli84mgs/Act Suspension 1 spray each nostril twice daily 1units 472.0 Trevor Roy M.S., ASSISTANT STATISTICIAN-C 11/29/2013 784.91 493.00 Ventolin UTP079(90Base) mcg/Act Aerosol 2 puffs every 4 hours as needed; 30min prior to exercise 1units 472.0 Trevor Roy M.S., ASSISTANT STATISTICIAN-C 11/29/2013 Vital Signs Date Vital Result Comment [...]
--- OUTSIDE RECORDS SUMMARY | 2025-04-28 17:34 | XMS_ITS | Continuity of Care Document ---
Author Organization [facility] luzmaria Soriano Address [address] [place] [address] Phone [phone] Care Team Providers Care Nursing Clerk Name Role Phone Alfonzo Aly DO Care Team Information Manager Managed Care Unavailable JASE EID DPT Care Team Information Re ceiver Unavailable Mann Nugent MD Primary Care Physician Unavailab le Social History Type Date Description Comments Sex Male Sex Unknown Medications Active Medications SIG Qnty Indications Ordering Provider Date [id number] Tablets Unkn own Vital Signs Date Vital Result Comment 06/17/2024 11:07am BP Systolic 171 mmHg BP Diastolic 111 mmHg Heart Rate 117 /min Weight 315.00 lb Weight 142.884 kg Height 79 inches 6'7 Height in cm's 200.7 cm BMI (Body Mass Index) 35.5 kg/m2 [place] Body Weight 220 lb 01/30/2018 9:59am Height 79 inches 6'7 Height in cm's 200.7 cm Height Percentile 97 % [place] Body Weight 220 lb Procedures Date Code Description Status 07/25/2024 24692 Therapeutic Activities Direc t, Each 15 Minutes Completed 07/25/2024 02384 Re-Eval Of PT Es tablished Plan Of Care 20Mins Face To Face PT/Fam Completed 07/25/2024 40032 Neuromuscular Reeducation, E ach 15 Minutes Completed 07/25/2024 27738 Therapeutic Procedure, Each 15 Minutes Completed 07/25/2024 [facility] mpleted 07/23/2024 25931 Therapeutic Activities Direc t, Each 15 Minutes Completed 07/23/2024 64776 Neuromuscular Reeducation, E ach 15 Minutes Completed 07/23/2024 22340 Therapeutic Procedure, Each 15 Minutes Completed 07/22/2024 44224 Therapeutic Activities Direc t, Each 15 Minutes Completed 07/22/2024 09409 Therapeutic Procedure, Each 15 Minutes Completed 07/22/2024 91196 Neuromuscular Reeducation, E ach 15 Minutes Completed 07/19/2024 28244 Therapeutic Activities Direc t, Each 15 Minutes Completed 07/19/2024 98921 Neuromuscular Reeducation, E ach 15 Minutes Completed 07/19/2024 05070 Therapeutic Procedure, Each 15 Minutes Completed 07/19/2024 46964 Range Of Motion Measurements Each Extremity Or Trunk Section Completed 07/16/2024 78348 Neuromuscular Reeducation, E ach 15 Minutes Completed 07/16/2024 73511 Therapeutic Procedure, Each 15 Minutes Completed 07/16/2024 10449 Therapeutic Activities Direc t, Each 15 Minutes Completed 07/15/2024 60515 Therapeutic Activities Direc t, Each 15 Minutes Completed 07/15/2024 91268 Neuromuscular Reeducation, E ach 15 Minutes Completed 07/15/2024 52743 Therapeutic Procedure, Each 15 Minutes Completed 07/12/2024 91987 Therapeutic Activities Direc t, Each 15 Minutes Completed 07/12/2024 09911 Neuromuscular Reeducation, E ach 15 Minutes Completed 07/12/2024 80926 Therapeutic Procedure, Each 15 Minutes Completed 07/09/2024 87009 Therapeutic Activities Direc t, Each 15 Minutes Completed 07/09/2024 46317 Neuromuscular Reeducation, E ach 15 Minutes Completed 07/09/2024 67005 Therapeutic Procedure, Each 15 Minutes Completed 07/08/2024 34376 Therapeutic Activities Direc t, Each 15 Minutes Completed 07/08/2024 84645 Neuromuscular Reeducation, E ach 15 Minutes Completed 07/08/2024 31292 Therapeutic Procedure, Each 15 Minutes Completed 07/05/2024 17480 Therapeutic Activities Direc t, Each 15 Minutes Completed 07/05/2024 69153 Therapeutic Procedure, Each 15 Minutes Completed 07/05/2024 27455 Neuromuscular Reeducation, E ach 15 Minutes Completed 07/01/2024 43743 Therapeutic Activities Direc t, Each 15 Minutes Completed 07/01/2024 57420 Neuromuscular Reeducation, E ach 15 Minutes Completed 07/01/2024 09892 Therapeutic Procedure, Each 15 Minutes Completed 06/28/2024 79383 Therapeutic Activities Direc t, Each 15 Minutes Completed 06/28/2024 90184 Neuromuscular Reeducation, E ach 15 Minutes Completed 06/28/2024 27898 Therapeutic Procedure, Each 15 Minutes Completed 06/25/2024 77986 Therapeutic Activities Direc t, Each 15 Minutes Completed 06/25/2024 12852 Neuromuscular Reeducation, E ach 15 Minutes Completed 06/25/2024 98467 Therapeutic Procedure, Each 15 Minutes Completed 06/24/2024 73673 Neuromuscular Reeducation, E ach 15 Minutes Completed 06/24/2024 29826 Therapeutic Procedure, Each 15 Minutes Completed 06/21/2024 17918 Neuromuscular Reeducation, E ach 15 Minutes Completed 06/21/2024 64715 Therapeutic Procedure, Each 15 Minutes Completed 06/19/2024 G8417 Calculated BMI A osei Upper Parameter And Follow Up Plan Documentd Completed 06/19/2024 32859 Therapeutic Procedure, Each 15 Minutes Completed 06/19/2024 53533 Neuromuscular Reeducation, E ach 15 Minutes Completed 06/19/2024 97370 Therapeutic Activities Direc t, Each 15 Minutes Completed 06/17/2024 G8417 Calculated BMI A osei Upper Parameter And Follow Up Plan Documentd Completed 06/17/2024 66499 Therapeutic Activities Direc t, Each 15 Minutes Completed 06/17/2024 94859 Physical Therapy Eval Low Co mplexity Completed 06/17/2024 23567 Neuromuscular Reeducation, E ach 15 Minutes Completed 06/17/2024 97752 Therapeutic Procedure, Each 15 Minutes Completed 02/13/2018 51527 Post-Op Follow-Up Visit Comp leted 01/30/2018 86705 Post-Op Follow-Up Visit Comp leted 01/02/2018 60710 Post-Op Follow-Up Visit Comp leted 12/25/2017 18726 FX Metacarpal Open TX W/Wo F ixation Completed 12/25/2017 10970 Tenolysis Flexor/Extensor Te ndon Forearm/Wrist Completed 12/22/2017 [...] ligament of right knee, subsequent encounter Anish iEdopher DPT 06/24/2024 M25.561 Pain in right knee [...]
== END 2025-04-28 13:55 | disposition home or self-care (01) ==
LOC: HO.CT 13:54
PROVIDERS: Visit Provider Orthopaedic Surgery
DX: S82.152D Displaced fracture of left tibial tuberosity, subsequent encounter for closed fracture with routine healing (principal)
CPT/HCPCS: 73700

== ENCOUNTER → 2025-04-28 13:56 | Outpatient (BNV) | payer OTHER, SELFPAY | PROVIDERS: Visit Provider Radiology Diagnostic Radiology | DX: M25.462 Effusion, left knee (principal) | CPT/HCPCS: 73700 ==

== ENCOUNTER 2025-04-29 12:58 | Outpatient (REF) | payer OTHER, SELFPAY ==
--- NOTE | ~2025-04-29 | MR_ITS ---
EXAM: MRI LOWER EXTREMITY JOINT, KNEE, left TECHNIQUE: Multiplanar multisequence MR imaging performed through the left knee without contrast. INDICATION: Left knee injury, patellar tendon partial tear PRIOR: Left knee CT from the day before FINDINGS: Menisci: Lateral Meniscus: Intact Medial Meniscus: Intact ACL/PCL: ACL is intact. It demonstrates increased signal without evidence of laxity. PCL is intact and unremarkable. Extensor mechanism: There is streaky edema in Hoffa's fat pad. There is fluid tracking through more than half of the deep surface of proximal patellar tendon lateral to midline. Targeted tendon demonstrates mild fusiform thickening and increased signal. There is no joint effusion. There is increased fluid in the deep infrapatellar bursa extending laterally. MCL/LCL: MCL is intact. LCL complex is intact. Articular cartilage: Patellofemoral Compartment: There is a small focal fissure in the articular cartilage of middle third patella, junction a median ridge and lateral facet, involving less than half the cartilage thickness. Articular cartilage is intact otherwise. Lateral Compartment: Articular cartilage is intact. Medial Compartment: Articular cartilage is intact. Bones/Marrow: Bone marrow signal is physiologic. Soft tissues: There is no mass, fluid collection, muscle edema, or fatty infiltration. MR/MR knee LT wo con IMPRESSION: There is a grade 2 sprain of patellar tendon with edema in the adjacent fat pad of Hoffa. There is a tear of the proximal lateral fibers extending from the deep surface through more than half of the tendon thickness. Just below the tear, there is fusiform thickening of the tendon and there is increased signal throughout the tendon. There is also a small deep infrapatellar bursal effusion. Suspect grade 1 sprain of ACL: There is increased signal within the ACL which appears intact otherwise. Grade II chondromalacia involving patella: There is a linear fissure in the middle third patella, at the junction a median ridge and lateral facet, involving less than half the cartilage thickness. Electronically signed by: Berny Cr MD 04/29/2025 01:53 PM EDT
--- OUTSIDE RECORDS SUMMARY | 2025-04-29 16:20 | XMS_ITS | Clinical Summary ---
Author Organization [facility] Address [address] [place] [address] Care Team Providers Care Advertising Assistant Manager Name Role Phone Unavailable Primary Care [...]
--- OUTSIDE RECORDS SUMMARY | 2025-04-29 16:20 | XMS_ITS | Encounter Summary ---
Author Organization [facility] Address [address] [place] [address] Phone Care Team Providers Care Chemical Laboratory Tester Name Role Phone Alfonzo Aly DO Primary Care Provider [phone] Reason for Referral * MRI/CAT Scan - Closed Specialty Diagnoses / Procedures Referred By Juan german Referred To Contact Radiology Diagnoses Right knee pain, unspecified chronicity Procedures MRI Knee (Right) Alfonzo Aly DO [address] [place] [address] Phone: tel: fax: [email or web address] Referral ID Status Reason Start Date Expiration Date Visits Re quested Visits Authorized [id number] Closed 03/05/2024 03/05/2025 1 1 Encounter Details Date Type Department Care Team (Late st Contact Info) Description 03/05/2024 Transcribe Orders Virtual Department [address] [place] [address] Alfonzo Aly DO [address] [place] [address] [email or web address] Right knee pain, unspecified [...] chronicity documented in this encounter Care Teams Chemical Laboratory Tester Relationship Specialty Start Date End Date Alfonzo Aly DO [address] [place] [address] [email or web address] PCP - General Family Medicine 03/06/24 documented as of this encounter Additional Source Comments The information contained in this document represents components of the legal health record. It is not the complete legal health record.[facility]
--- OUTSIDE RECORDS SUMMARY | 2025-04-29 16:20 | XMS_ITS | Encounter Summary ---
Author Organization [facility] Address [address] [place], [place] [id number] Phone Care Team Providers Care Grain Origination Specialist Name Role Phone Alfonzo Aly DO Primary Care Provider [phone] Encounter Details Date Type Department Care Team (Late st Contact Info) Description 03/05/2024 Procedure Pass [address] [place] [address] Social History Tobacco Use Types Packs/Day Years [...] on filedocumented in this encounter Care Teams Grain Origination Specialist Relationship Specialty Start Date End Date Alfonzo Aly DO [address] [place], [place] [address] [place] [address] PCP - General Family Medicine 03/06/24 documented as of this encounter Additional Source Comments The information contained in this document represents components of the legal health record. It is not the complete legal health record.[facility]
--- OUTSIDE RECORDS SUMMARY | 2025-04-29 16:20 | XMS_ITS | Clinical Summary ---
Author Organization [facility] Address [address] [place] [address] Phone Care Team Providers Care Manager Product Management Name Role Phone Alfonzo Aly Cristina RODRIGUEZ Primary Care Provider [phone] Social History Tobacco Use Types Packs/Day Years [...] [employer] Care Teams Manager Product Management Relationship Specialty Start Date End Date Alfonzo Aly DO [address] [place] [address] PCP - General Family Medicine 03/06/24 Additional Source Comments The information contained in this document represents components of the legal health record. It is not the complete legal health record.[facility]
--- OUTSIDE RECORDS SUMMARY | 2025-04-29 16:20 | XMS_ITS ---
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 Allergic rhinitis Trevor Roy M.S., VEGETABLE HARVEST WORKER-C Onset: 12/19/2013 Allergic rhinitis Trevor Roy M.S., VEGETABLE HARVEST WORKER-C Onset: 12/19/2013 Allergic rhinitis caused by animals Trevor Roy M.S., VEGETABLE HARVEST WORKER-C Onset: 12/19/2013 Allergic rhinitis caused by pollen Lynnette Bey, VEGETABLE HARVEST WORKER-C Onset: 12/19/2013 Allergic asthma without status asthmaticus Trevor Roy M.S., VEGETABLE HARVEST WORKER-C Onset: 12/19/2013 Exercise-induced asthma Trevor Roy M.S., VEGETABLE HARVEST WORKER-C O nset: 11/29/2013 Difficulty breathing Trevor Roy M.S., VEGETABLE HARVEST WORKER-C Onse t: 11/29/2013 Posterior rhinorrhea Trevor Roy M.S., VEGETABLE HARVEST WORKER-C Onse t: 11/29/2013 Chronic rhinitis Trevor Roy M.S., VEGETABLE HARVEST WORKER-C Onset: 0 11/29/2013 Allergies and adverse reactions Active Allergies Criticality Reaction Severity Comments Date Augmentin Unable to assess criticality Urticaria 11/29/2013 Montelukast Unable to assess criticality Mood change Moderate 02/14/2014 Inactive Allergies No Known Drug Allergies 0 11/29/2013 Medications Active Medications SIG Qnty Indications Ordering Provider Date Hrfa89fvi/Act Aerosol 2 puffs twice daily; rinse mouth after use 1units 493.00 Vitor Parekh M.D. 12/19/2013 Cjfvckztrx30yb Tablets 1 tab by mouth every day as needed for seasonal allergies 30tabs 493.00 Trevor Roy M.S., VEGETABLE HARVEST WORKER-C 12/19/2013 Sinus Rinse Bottle KitPacket rinse sinus twice daily; may buy hoai-jmv-rcfnkad sinus rinse 1units 472.0 Trevor Roy M.S., VEGETABLE HARVEST WORKER-C 11/29/2013 Kqcdfmy98wjv/Act Suspension 1 spray each nostril twice daily 1units 472.0 Trevor Roy M.S., VEGETABLE HARVEST WORKER-C 11/29/2013 784.91 493.00 Ventolin WTT207(90Base) mcg/Act Aerosol 2 puffs every 4 hours as needed; 30min prior to exercise 1units 472.0 Trevor Roy M.S., VEGETABLE HARVEST WORKER-C 11/29/2013 Vital Signs Date Vital Result Comment [...]
--- OUTSIDE RECORDS SUMMARY | 2025-04-29 16:20 | XMS_ITS | Clinical Summary ---
Author Organization [facility] Address [address] [place] [address] Phone Care Team Providers Care Ironer Sock Name Role Phone Mann Nugent MD Primary Care Provider [phone] Allergies No known active allergies Medications No [...] Treatment Not on file Insurance [place] [employer] [facility] [place] [id number] Care Teams Ironer Sock Relationship Specialty Start Date End Date Mann Nugent MD [address] [place] [id number] PCP - General 06/04/09
--- OUTSIDE RECORDS SUMMARY | 2025-04-29 16:20 | XMS_ITS | Continuity of Care Document ---
Author Organization [facility] luzmaria Soriano Address [address] [place] [address] Phone [phone] Care Team Providers Care House Mover Name Role Phone Alfonzo Aly DO Care Team Information Tanker Service Attendant Unavailable JASE EID DPT Care Team Information Re ceiver Unavailable Mann Nugent MD Primary Care Physician Unavailab le Social History Type Date Description Comments Sex Male Sex Unknown Medications Active Medications SIG Qnty Indications Ordering Provider Date Yzjsyfudurre468uh Tablets Unkn own Vital Signs Date Vital Result Comment 06/17/2024 11:07am BP Systolic 171 mmHg BP Diastolic 111 mmHg Heart Rate 117 /min Weight 315.00 lb Weight 142.884 kg Height 79 inches 6'7 Height in cm's 200.7 cm BMI (Body Mass Index) 35.5 kg/m2 [place] Body Weight 220 lb 01/30/2018 9:59am Height 79 inches 6'7 Height in cm's 200.7 cm Height Percentile 97 % [place] Body Weight 220 lb Procedures Date Code Description Status 07/25/2024 09178 Therapeutic Activities Direc t, Each 15 Minutes Completed 07/25/2024 65562 Re-Eval Of PT Es tablished Plan Of Care 20Mins Face To Face PT/Fam Completed 07/25/2024 29836 Neuromuscular Reeducation, E ach 15 Minutes Completed 07/25/2024 95471 Therapeutic Procedure, Each 15 Minutes Completed 07/25/2024 [facility] mpleted 07/23/2024 73222 Therapeutic Activities Direc t, Each 15 Minutes Completed 07/23/2024 12524 Neuromuscular Reeducation, E ach 15 Minutes Completed 07/23/2024 06918 Therapeutic Procedure, Each 15 Minutes Completed 07/22/2024 80808 Therapeutic Activities Direc t, Each 15 Minutes Completed 07/22/2024 43765 Therapeutic Procedure, Each 15 Minutes Completed 07/22/2024 92086 Neuromuscular Reeducation, E ach 15 Minutes Completed 07/19/2024 96543 Therapeutic Activities Direc t, Each 15 Minutes Completed 07/19/2024 03978 Neuromuscular Reeducation, E ach 15 Minutes Completed 07/19/2024 06578 Therapeutic Procedure, Each 15 Minutes Completed 07/19/2024 39362 Range Of Motion Measurements Each Extremity Or Trunk Section Completed 07/16/2024 04493 Neuromuscular Reeducation, E ach 15 Minutes Completed 07/16/2024 30717 Therapeutic Procedure, Each 15 Minutes Completed 07/16/2024 91169 Therapeutic Activities Direc t, Each 15 Minutes Completed 07/15/2024 66312 Therapeutic Activities Direc t, Each 15 Minutes Completed 07/15/2024 56540 Neuromuscular Reeducation, E ach 15 Minutes Completed 07/15/2024 65041 Therapeutic Procedure, Each 15 Minutes Completed 07/12/2024 08795 Therapeutic Activities Direc t, Each 15 Minutes Completed 07/12/2024 42006 Neuromuscular Reeducation, E ach 15 Minutes Completed 07/12/2024 38134 Therapeutic Procedure, Each 15 Minutes Completed 07/09/2024 68398 Therapeutic Activities Direc t, Each 15 Minutes Completed 07/09/2024 54125 Neuromuscular Reeducation, E ach 15 Minutes Completed 07/09/2024 87612 Therapeutic Procedure, Each 15 Minutes Completed 07/08/2024 47571 Therapeutic Activities Direc t, Each 15 Minutes Completed 07/08/2024 97016 Neuromuscular Reeducation, E ach 15 Minutes Completed 07/08/2024 14912 Therapeutic Procedure, Each 15 Minutes Completed 07/05/2024 95710 Therapeutic Activities Direc t, Each 15 Minutes Completed 07/05/2024 67278 Therapeutic Procedure, Each 15 Minutes Completed 07/05/2024 48521 Neuromuscular Reeducation, E ach 15 Minutes Completed 07/01/2024 07353 Therapeutic Activities Direc t, Each 15 Minutes Completed 07/01/2024 06573 Neuromuscular Reeducation, E ach 15 Minutes Completed 07/01/2024 36219 Therapeutic Procedure, Each 15 Minutes Completed 06/28/2024 25518 Therapeutic Activities Direc t, Each 15 Minutes Completed 06/28/2024 42588 Neuromuscular Reeducation, E ach 15 Minutes Completed 06/28/2024 23311 Therapeutic Procedure, Each 15 Minutes Completed 06/25/2024 83204 Therapeutic Activities Direc t, Each 15 Minutes Completed 06/25/2024 90712 Neuromuscular Reeducation, E ach 15 Minutes Completed 06/25/2024 65831 Therapeutic Procedure, Each 15 Minutes Completed 06/24/2024 75751 Neuromuscular Reeducation, E ach 15 Minutes Completed 06/24/2024 37184 Therapeutic Procedure, Each 15 Minutes Completed 06/21/2024 54365 Neuromuscular Reeducation, E ach 15 Minutes Completed 06/21/2024 27974 Therapeutic Procedure, Each 15 Minutes Completed 06/19/2024 G8417 Calculated BMI A osei Upper Parameter And Follow Up Plan Documentd Completed 06/19/2024 73092 Therapeutic Procedure, Each 15 Minutes Completed 06/19/2024 20009 Neuromuscular Reeducation, E ach 15 Minutes Completed 06/19/2024 65974 Therapeutic Activities Direc t, Each 15 Minutes Completed 06/17/2024 G8417 Calculated BMI A osei Upper Parameter And Follow Up Plan Documentd Completed 06/17/2024 23591 Therapeutic Activities Direc t, Each 15 Minutes Completed 06/17/2024 48957 Physical Therapy Eval Low Co mplexity Completed 06/17/2024 17254 Neuromuscular Reeducation, E ach 15 Minutes Completed 06/17/2024 03174 Therapeutic Procedure, Each 15 Minutes Completed 02/13/2018 67759 Post-Op Follow-Up Visit Comp leted 01/30/2018 56290 Post-Op Follow-Up Visit Comp leted 01/02/2018 43571 Post-Op Follow-Up Visit Comp leted 12/25/2017 66866 FX Metacarpal Open TX W/Wo F ixation Completed 12/25/2017 56152 Tenolysis Flexor/Extensor Te ndon Forearm/Wrist Completed 12/22/2017 [...] Contusion of lef t knee, subsequent encounter aJma Dill, DPT 07/09/2024 Z68.35 Body mass index [...]
== END 2025-04-29 12:59 | disposition home or self-care (01) ==
LOC: HO.MRI 12:58
PROVIDERS: Visit Provider Orthopaedic Surgery
DX: S82.152D Displaced fracture of left tibial tuberosity, subsequent encounter for closed fracture with routine healing (principal)
CPT/HCPCS: 73721

== ENCOUNTER → 2025-04-29 13:02 | Outpatient (BNV) | payer OTHER, SELFPAY | PROVIDERS: Visit Provider Radiology Diagnostic Radiology | DX: S82.153A Displaced fracture of unspecified tibial tuberosity, initial encounter for closed fracture (principal) | CPT/HCPCS: 73721 ==

== ENCOUNTER 2025-04-29 13:43 | Outpatient (AMB) | payer OTHER, SELFPAY ==
--- NOTE | 2025-04-29 14:04 | A.OFFVIS_ITS ---
Intake Visit Reasons: Euflexxa #3 Allergies amoxicillin (From Augmentin) Allergy (Verified 04/16/25 15:07) Hives clavulanic acid (From Augmentin) Allergy (Verified 04/16/25 15:07) Hives HPI HPI Euflexxa #3: Details: Here for 3/3 Euflexxa. Right knee feels well. PFSH Surgical History (Updated 04/16/25 @ 15:06 by Sangeeta Castle CMA) Hx of hand surgery Social History (Updated 04/16/25 @ 15:07 by Sangeeta Castle CMA) Current occupational status: student Current occupation: [employer] Physical Exam Extrem Other: skin c/d/i Office Procedures Joint Inj/Aspir; Non-Pain Clin Joint Injection/Drain Details: Injected Euflexxa. Site was prepped using aseptic technique. Patient tolerated the procedure well. Shoulders, Hips, Knees, Knee Large Joint Injection : Right Knee Coding Procedure code (CPT) selection complete Assessment & Plan Assessment & Plan (1) Knee effusion, right: Code(s): M25.461 - Effusion, right knee Category: Medical Plan: Right knee injected. No complications. Coding Level of Care Code Est Pt Level 2 (69819) Diagnoses Knee effusion, right M25.461 CPT Codes Shoulders, Hips, Knees, - Knee Large Joint Injection : Right Knee ([id number])
== END 2025-04-29 14:40 | disposition home or self-care (01) ==
LOC: HO.HOS 13:43
PROVIDERS: Visit Provider Orthopaedic Surgery
DX: M25.461 Effusion, right knee (principal)
CPT/HCPCS: 20610

== ENCOUNTER 2025-05-19 11:56 | Outpatient (AMB) | payer OTHER, SELFPAY ==
--- NOTE | 2025-05-19 11:56 | MHC.OFFVIS ---
Intake Visit Reasons: Follow Up Intake Note: Follow up Clinical Informatics Physician Required: No Allergies amoxicillin (From Augmentin) Allergy (Verified 04/16/25 15:07) Hives clavulanic acid (From Augmentin) Allergy (Verified 04/16/25 15:07) Hives HPI HPI Follow Up: Details: Murray is seen today with Football car hopper and is here regarding bilateral knees. He returns from [place] having seen surgeon who is planning MCL and MPFLreconstruction with allog/auto. Surgery is in ~3 weeks. He will remain in [place] for about 5-7 days then return to [facility] until the when he plans n returning to [place]. He is all set and understands the procedure and the paln. His left knee was injured ~ 2 1/5 weeks ago in [place]. MRI showed distal patellar tendon sprain and small partial tear of the most lateral aspect of patellar tendon at its quad insertion. His [ain, which is only with provocative manuevers, is anteromedial. Some discomfort/pain with loaded squatting. 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 Left knee with no effusion Mild ttp anterolateral patellar insertion of patellar tendon. Mild ttp anteromedial knee. No steinmen's, no JLT, Neg Hoffa's Assessment & Plan Assessment & Plan (1) MCL deficiency, knee: Code(s): M23.8X9 - Other internal derangements of unspecified knee Category: Medical Plan: Right knee expected to undergo surgery in ~ 3 weeks. Discussed post operative precautions and expectations. Will be available post op if needed. (2) Patellar tendon strain: Code(s): S86.819A - Strain of other muscle(s) and tendon(s) at lower leg level, unspecified leg, initial encounter Category: Medical Plan: Left knee with small partial thickness patellar tendon tear. This should heal and may consider PRP if recovery is prolonged. Given right knee surgery pending treatment is rest and activity modification. He will remain unable to play for reamining games of the season. Will follow up with post op on other knee. Coding Level of Care Code Est Pt Level 3 (23059) Complex EM visit Add On G2211 Diagnoses MCL deficiency, knee M23.8X9 Patellar tendon strain S86.819A
== END 2025-05-19 11:57 | disposition home or self-care (01) ==
LOC: HO.HMGUMA 11:56
PROVIDERS: Visit Provider Orthopaedic Surgery
DX: M23.8X9 Other internal derangements of unspecified knee (principal); S86.819A Strain of other muscle(s) and tendon(s) at lower leg level, unspecified leg, initial encounter
CPT/HCPCS: 99213

== ENCOUNTER 2025-06-13 10:22 | Outpatient (AMB) | payer OTHER, SELFPAY ==
--- NOTE | 2025-06-13 10:24 | A.OFFVIS_ITS ---
Intake Visit Reasons: Follow Up Rail Engineer Required: No Allergies amoxicillin (From Augmentin) Allergy (Verified 04/16/25 15:07) Hives clavulanic acid (From Augmentin) Allergy (Verified 04/16/25 15:07) Hives HPI HPI Follow Up: Details: Murray is ~1 week s/p right MPFL, MCL repair with internal brace and PF chondroplasty. Doing well and is walking in brace locked in ext and with crutches. 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
== END 2025-06-13 10:25 | disposition home or self-care (01) ==
LOC: HO.HMGUMA 10:22
PROVIDERS: Visit Provider Orthopaedic Surgery
DX: Z98.890 Other specified postprocedural states (principal); Z87.39 Personal history of other diseases of the musculoskeletal system and connective tissue
CPT/HCPCS: 99213